=== PATIENT | male | born 1950 | race Caucasian/White ===

== ENCOUNTER 2019-11-18 12:30 | Inpatient (IN) | payer MEDICARE, SELFPAY ==
[2019-11-18] VITALS (7 sets, daily range): BP systolic 106–124; BP diastolic 77–93; PULSE 63–125; RESP 20–28; TEMP 36.4–37.1; O2SAT 93–96; BMI 38.0; BMI 41.2
--- NOTE | 2019-11-18 12:44 | ECG_ITS ---
APPROVED REPORT Exam: Resting ECG HR:125 bpm ECG Measurements Heart Rate 125 AXES QRSd 174 QRS 182 QT 368 T 5 QTc 531 <Conclusion> Probable atrial fibrillation with frequent and consecutive premature ventricular complexes and fusion complexes vs.aberrancy Right bundle branch block LAHB Abnormal ECG Electronically signed by : Eugenio Gamez, 11/18/2019 16:07:51
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
--- NOTE | 2019-11-18 12:52 | XR_ITS ---
PROCEDURE: XR CHEST 2V CLINICAL HISTORY: shortness of breath Shortness of breath COMPARISON: CT ABDOMEN PELVIS WO CON from 11/18/2019 FINDINGS: There is cardiomegaly with pulmonary venous congestion consistent with CHF. There is a small right pleural effusion. No acute bony anomaly. IMPRESSION: CHF with small right effusion Dictated by: Daniel Gorman MD 11/18/2019 14:02 Electronically signed by Daniel Gorman MD in [facility] 11/18/2019 14:02
--- NOTE | 2019-11-18 13:04 | HMH.EDGENADL ---
ED Disposition Clinical Impression: Acute on chronic respiratory failure with hypoxia, Pleural effusion CHF (congestive heart failure) Qualifiers: Heart failure type: unspecified Heart failure chronicity: acute on chronic Qualified Code(s): I50.9 - Heart failure, unspecified Disposition: Admitted As Inpatient Condition on Discharge: Fair Time of Disposition: 16:00 - Critical Care Critical Care Time: No Attestation: On 11/18/19, the high probability of a clinically significant, sudden or life threatening deterioration of the following system(s) required my full and direct attention, intervention and personal management. The time I documented below is in addition to time spent performing reported procedures but includes the following listed in this critical care notation. Medical Decision Making - Ti Inquiry Pt receiving controlled substance: No Vital Signs: 11/18/19 12:31 11/18/19 15:23 11/18/19 16:00 Temperature 98.3 F Temperature Source Oral Pulse Rate Pulse Rate [Radial] 125 H 63 Respiratory Rate 22 20 Blood Pressure Blood Pressure [Right Arm] 124/87 118/93 H Blood Pressure Mean [Right Arm] 99 101 Blood Pressure Source Blood Pressure Source [Right Arm] Automatic Cuff Automatic Cuff Blood Pressure Position Blood Pressure Position [Right Arm] Sitting Supine 02 Sat by Pulse Oximetry 93 L 96 96 Oxygen Delivery Method Room Air Room Air Room Air 11/18/19 16:06 Temperature 98.8 F Temperature Source Oral Pulse Rate 125 H Pulse Rate [Radial] Respiratory Rate 22 Blood Pressure 124/87 Blood Pressure [Right Arm] Blood Pressure Mean [Right Arm] Blood Pressure Source Automatic Cuff Blood Pressure Source [Right Arm] Blood Pressure Position Sitting Blood Pressure Position [Right Arm] 02 Sat by Pulse Oximetry Oxygen Delivery Method Room Air - Lab Data Lab Results 11/18/19 13:05: WBC 9.8, RBC 5.45, Hgb 17.4, Hct 52.5 H, MCV 96.4 H, MCH 31.9 H, MCHC 33.1, RDW 13.7, Plt Count 162, MPV 10.1, Neut % (Auto) 73.8, Lymph % (Auto) 16.8, Throckmorton % (Auto) 7.2, Eos % (Auto) 1.7, Baso % (Auto) 0.4, Neut # (Auto) 7.2, Lymph # (Auto) 1.7, Throckmorton # (Auto) 0.7, Eos # (Auto) 0.2, Baso # (Auto) 0.0 11/18/19 13:05: Sodium 132 L, Potassium 4.3, Chloride 100, Carbon Dioxide 22, Anion Gap 14.3, BUN 26 H, Creatinine 0.70, Estimated Creat Clear 129, Estimated GFR 112, Est GFR ( Amer) 136, Glucose 235 H, Calcium 9.3, Total Bilirubin 2.2 H, AST 59, ALT 90 H, Alkaline Phosphatase 93, Total Protein 7.1, Albumin 3.9, Globulin 3.2, Albumin/Globulin Ratio 1.2 11/18/19 13:05: Phosphorus 3.9, Magnesium 1.9, Troponin I 0.04 H, Lipase 416 H 11/18/19 13:05: Lactate 1.5 11/18/19 13:05: NT-Pro-B Natriuret Pep 1930 H 11/18/19 13:05: Hemoglobin A1c 9.1 H 11/18/19 13:24: Specimen Source Left radial, O2 % Ra, ABG pH 7.42, ABG pCO2 33.4 L, ABG pO2 70.1 L, ABG HCO3 21.2 L, ABG Total CO2 22.2 L, ABG O2 Saturation 94, ABG Base Excess -3.3 L, Daniel Test Acceptable Result diagrams: 11/18/19 13:05 11/18/19 13:05 Orders (Tests/Meds): ED MEDICATIONS Generic Name Dose Route Start Last Admin Trade Name Freq PRN Reason Stop Dose Admin Bisoprolol Fumarate 5 mg 11/18/19 16:00 11/18/19 16:39 Zebeta 5mg Tablet PO 12/18/19 15:59 5 mg DAILY JHONNY Administration Furosemide 40 mg 11/18/19 18:00 Lasix 40mg/4ml Vial IV 12/18/19 17:59 BIDL JHONNY Insulin Human Lispro 0 unit 11/18/19 21:00 Humalog 100 Units/Ml 3ml Vial (Ssi) SQ 12/18/19 20:59 [facility] Protocol Potassium Chloride 40 meq 11/18/19 21:00 Klor-Con 20meq Tablet PO 12/18/19 20:59 BID JHONNY Discontinued Medications Generic Name Dose Route Start Last Admin Trade Name Freq PRN Reason Stop Dose Admin Digoxin 500 mcg 11/18/19 15:41 11/18/19 16:39 Digoxin Injection 0.25mg/Ml IV 11/18/19 15:42 500 mcg ONCE ONE Administration Furosemide 40 mg 11/18/19 14:22 11/18/19 14:40 Lasix 40mg/4ml Vial IV 11/18/19 14:
[2019-11-18 13:21] LABS: Chloride 100 mmol/L (98-107); Potassium 4.3 mmoL/L (3.5-5.1); Sodium 132 mmol/L (136-145)
[2019-11-18 13:22] LABS: Basophils % 0.4 % (0.1-2.0); Eosinophils # 0.2 K/mm3 (0.0-0.4); Eosinophils % 1.7 % (0.1-12.0); Hematocrit 52.5 % (42.0-52.0); Hemoglobin 17.4 g/dL (14.1-18.0); Lymphocytes # 1.7 K/mm3 (0.7-4.5); Lymphocytes % 16.8 % (10-50); Mean Corpuscular HGB Conc 33.1 g/dL (31.8-35.4); Mean Corpuscular Hemoglobin 31.9 pg (27.0-31.2); Mean Corpuscular Volume 96.4 fl (80-94); Mean Platelet Volume 10.1 fl (7.4-10.4); Monocytes # 0.7 K/mm3 (0.1-1.0); Monocytes % 7.2 % (1.7-9.3); Neutrophils # 7.2 K/mm3 (1.8-7.8); Neutrophils % 73.8 % (37.0-80.0); Platelet Count 162 K/mm3 (142-424); Red Blood Count 5.45 M/mm3 (4.60-6.20); Red Cell Distribution Width 13.7 % (11.5-17.5); White Blood Count 9.8 K/mm3 (4.8-10.8)
[2019-11-18 13:24] LABS: Alanine Aminotransferase 90 U/L (12-78); Albumin Level 3.9 g/dl (3.5-5.0); Albumin/Globulin Ratio 1.2 (1.1-1.8); Alkaline Phosphatase 93 U/L (38-126); Anion Gap 14.3 mEq/L (5-15); Aspartate Amino Transferase 59 U/L (17-59); Bilirubin,Total 2.2 mg/dl (0.2-1.3); Blood Urea Nitrogen 26 mg/dl (9-20); Calcium 9.3 mg/dl (8.4-10.2); Carbon Dioxide 22 mmol/L (22.0-30.0); Creatinine Clearance Estimated 129 mL/min (50-200); Estimated Glomerular Filt Rate 112 ml/min (>60); GFR (African American) 136 ML/MIN (>60); Globulin 3.2 g/dL (1.3-3.2); Glucose 235 mg/dl (74-100); Total Protein,Serum 7.1 g/dl (6.3-8.2)
[2019-11-18 13:38] LABS: Lactic Acid 1.5 mmol/L (0.7-2.1); Lipase 416 U/L (23-300); Magnesium 1.9 mg/dl (1.6-2.3); Phosphorous 3.9 mg/dl (2.5-4.5)
[2019-11-18 13:50] LABS: Troponin I 0.04 ng/ml (0.00-0.034)
[2019-11-18 13:57] LABS: ABG Base Excess -3.3 mmol/L (-2.4-2.3); ABG HCO3 21.2 mmhg (22.0-26.0); ABG Oxygen Saturation 94 % (90-100); ABG PCO2 33.4 mmhg (35.0-45.0); ABG PH 7.42 mmol/L (7.35-7.45); ABG PO2 70.1 mmhg (80-100); ABG TCO2 22.2 mmhg (23-27)
[2019-11-18 13:59] LABS: Allen's Test ACCEPTABLE; Oxygen RA %; Source Left Radial
[2019-11-18 14:13] LABS: NT Pro Brain Natriuretic Pep. 1930 pg/mL (0-125)
--- NOTE | 2019-11-18 14:32 | CA_ITS ---
APPROVED REPORT EXAM: Comprehensive 2D, Doppler, and color-flow Echocardiogram Skin Fitter: Ngozi Morillo CRT Ht: 6 ft 0 in Wt: 280lbs BSA: 2.46 BP: 124/87 mmHg Indications: sob, pleural effusions, obesity M-Mode Dimensions RVDd 3.36 cm (0.9-2.6) LVDd 7.45 cm (3.5-5.7) LVDs 6.68 cm (3.5-5.7) IVSd 1.56 cm (0.6-1.1) PWd 0.86 cm (0.6-1.1) EF (Teich) 21.80% FS 10.30% EDV (Teich) 293.90 mL ESV (Teich) 229.80 mL Left Ventricle Left atrium is mildly enlarged, left ventricle is mildly dilated, severe reduced left ventricular systolic function, visually estimated ejection fraction 25 to 30%, there is abnormal septal motion, endocardial surfaces are poorly visualized. Diastolic parameters are inconclusive. Right Ventricle Right atrium and right ventricle mildly enlarged with normal contractility. Aortic Valve Aortic valve is thickened and calcified leaflet chordae display mobility, there is no aortic stenosis or aortic insufficiency. Mitral Valve Mitral valve is minimally thickened, leaflets are minimally calcified, there is no mitral stenosis, there is moderate mitral regurgitation. Tricuspid Valve Tricuspid valve is grossly normal, there is mild tricuspid regurgitation, calculated right ventricular systolic pressure is 48 mmHg. Pulmonic Valve Pulmonic valve is poorly visualized. Great Vessels Aortic root is normal size. Pericardium No significant pericardial effusion noted. Conclusion 1. Biatrial enlargement, dilated left ventricle, severely reduced left ventricular systolic function, visually estimated ejection fraction 25 to 30%, there is abnormal septal motion, endocardial surfaces are poorly visualized. Diastolic parameters are inconclusive. 2. Mildly enlarged with normal contractility. 3. Thickened and calcified aortic valve without Doppler evidence of aortic stenosis or aortic insufficiency. 4. Moderate mitral and mild tricuspid regurgitation. Calculated right ventricular systolic pressure is 48 mmHg. Inferior vena cava is not well-visualized 5. No significant pericardial effusion noted. Electronically signed by : Arsenio West, 11/18/2019 20:16:40
[2019-11-18 15:08] LABS: Hemoglobin A1C 9.1 % (4.0-6.0)
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
--- NOTE | 2019-11-18 15:27 | PC.NURSE ---
Report called to ROXI Reyna on Med Surg.
--- NOTE | 2019-11-18 15:44 | PC.NURSE ---
called cardiology office and spoke with Radhika about consult
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
[2019-11-18 19:09] LABS: Troponin I 0.05 ng/ml (0.00-0.034)
--- NOTE | 2019-11-18 19:12 | PC.NURSE ---
report given to amanuel
[2019-11-18 21:22] LABS: POC Glucose,Bedside 204 (70-110)
[2019-11-18 21:49] LABS: Troponin I 0.05 ng/ml (0.00-0.034)
--- NOTE | 2019-11-18 22:31 | PC.NURSE ---
Questionable rhythm change noted on tele, EKG obtained and d/t artifact 2 EKG's taken. 1st reads as Atrial Flutter with variable AV block with PVC or aberrantly conducted complexes, Right BBB, Septal artifact and the 2nd read Atrial Fibrillation, R BBB, Septal infarct . Admitting and current EKG's, along with rhythm strips were taken to Dr. Bruce for review per protocol. Dr. Bruce noting [employer] [pacemaker] on 2nd EKG obtained. Dr. Oneal is on-call for Dr. Pelayo and made aware of the above findings and current Labs & VS, reports to notify if HR becomes >100 or pt is symptomatic. also orders for pt to remain on cardiac monitoring.
[2019-11-19] VITALS (23 sets, daily range): BP systolic 95–145; BP diastolic 46–85; PULSE 60–120; RESP 16–30; TEMP 36.3–36.7; O2SAT 79–98; BMI 40.7
--- NOTE | 2019-11-19 | IR_ITS ---
APPROVED REPORT Patient Location: OutpatientInpatient Cardiovascular Sonographer: MARC Griffin RT (R) PROCEDURES Left heart catheterization Left ventriculogram Selective coronary angiogram INDICATION New onset systolic congestive heart failure ejection fraction less than 20% Informed consent was obtained prior to the procedure. COMPLICATIONS none Estimated Blood Loss: less than 10 mls TECHNIQUE One percent lidocaine used to anesthetize the right anterior aspect of the wrist. The right radial artery was accessed via the Seldinger technique. A 6 Portuguese sheath was placed in the right radial artery. 2.5 mg of verapamil, 800 mcg of nitroglycerin, 1mg Lidocaine and 5000 U Heparin were given through the arterial sheath. The trap catheter and 6 Portuguese EBU 3.75 guide catheter were used to perform left heart catheterization, left ventriculogram and selective coronary angiogram. At the end of the procedure the sheath was removed good hemostasis was achieved using Traclet band, patient was transferred to the postop holding area in stable condition. ANGIOGRAPHIC RESULTS The left main artery Has mild 10% atheromatous plaque The left anterior descending artery Has proximal 10% stenoses with mid vessel 30% stenosis. First diagonal artery has an ostial 70% stenosis and a mid vessel 70% stenosis. The diagonal artery is 1.5 mm in diameter The circumflex artery Is a nondominant vessel and has a long proximal 50% stenosis and a 3.25 mm vessel The right coronary artery Is a large dominant vessel and has proximal 10 to 20% stenosis a mid vessel 20 to 30% stenosis and distal eccentric 30% stenosis. The distal branches have 40% [id number] stenoses The TURK ventriculogram reveals Severely dilated severely globally hypokinetic with an ejection fraction 10% The left ventricular end-diastolic pressure Critically elevated at 50 to 60 mmHg IMPRESSION Coronary artery disease as described above Nonischemic cardiomyopathy with severely reduced ejection fraction severely dilated ventricle and severely elevated LVEDP PLAN 1. Aggressive medical management for systolic heart failure 2. Patient requires significant IV diuresis. I would recommend Lasix 80 mg twice daily until there is a significant increase in creatinine thereby demonstrating patient is in a prerenal state 3. STEPHANE inhibitor should be started on maximized 4. Beta-blockers can be added after STEPHANE inhibitors are maximized 5. High intensity statin 6. Patient should be discharged home with a LifeVest only after he has been significantly diuresed and tuned up from a systolic heart failure standpoint Electronically signed by : Roman Honeycutt, 11/19/2019 10:45:08
--- NOTE | 2019-11-19 00:07 | PC.NURSE ---
Pt's RR is elevated, pt denies any SOB at this time. Pt is sitting up in chair, legs dependent, and relaxing. Pt reports I can't sleep in that bed, can't get comfortable. Pt offered more pillows, pt refused. Pt offered and accepted a fan d/t feeling hot . Pt is afebrile, and pt reports he keeps his home ice cold . Will continue to monitor.
[2019-11-19 06:20] LABS: POC Glucose,Bedside 177 (70-110)
[2019-11-19 07:08] LABS: Basophils % 0.2 % (0.1-2.0); Eosinophils # 0.1 K/mm3 (0.0-0.4); Eosinophils % 1.4 % (0.1-12.0); Hematocrit 52.7 % (42.0-52.0); Hemoglobin 17.3 g/dL (14.1-18.0); Lymphocytes # 1.4 K/mm3 (0.7-4.5); Lymphocytes % 19.6 % (10-50); Mean Corpuscular HGB Conc 32.7 g/dL (31.8-35.4); Mean Corpuscular Hemoglobin 31.8 pg (27.0-31.2); Mean Corpuscular Volume 97.2 fl (80-94); Mean Platelet Volume 10.1 fl (7.4-10.4); Monocytes # 0.6 K/mm3 (0.1-1.0); Monocytes % 8.1 % (1.7-9.3); Neutrophils # 5.1 K/mm3 (1.8-7.8); Neutrophils % 70.8 % (37.0-80.0); Platelet Count 121 K/mm3 (142-424); Red Blood Count 5.42 M/mm3 (4.60-6.20); Red Cell Distribution Width 13.7 % (11.5-17.5); White Blood Count 7.3 K/mm3 (4.8-10.8)
[2019-11-19 07:10] LABS: Chloride 99 mmol/L (98-107)
[2019-11-19 07:11] LABS: Potassium 4.2 mmoL/L (3.5-5.1); Sodium 133 mmol/L (136-145)
[2019-11-19 07:13] LABS: Blood Urea Nitrogen 31 mg/dl (9-20); Creatinine Clearance Estimated 79 mL/min (50-200); Estimated Glomerular Filt Rate 96 ml/min (>60); GFR (African American) 117 ML/MIN (>60)
[2019-11-19 07:14] LABS: Anion Gap 15.2 mEq/L (5-15); Calcium 9.1 mg/dl (8.4-10.2); Carbon Dioxide 23 mmol/L (22.0-30.0); Glucose 192 mg/dl (74-100)
--- NOTE | 2019-11-19 08:27 | HMH.PNCARD ---
Subjective Date: 11/19/19 Time: 08:28 Principal diagnosis: CHF, CM, Elevated troponins Interval history: 69-year-old white male in bedside chair in no acute distress. Breathing is improved but not back to baseline. Patient continues to have lower extremity edema and some difficulty lying flat for long periods of time. He denies any chest pain, pressure or tightness. Heart rate significantly improved with addition of bisoprolol and digoxin yesterday. Echocardiogram shows ejection fraction in the 25-30% range with moderate regurgitation of the mitral valve and right ventricular systolic pressure 48 mmHg. Exam Vital signs and Labs for Last 24 Hours: Temp Pulse Resp BP Pulse Ox 97.9 F 94 H 18 114/85 90 L 11/19/19 08:00 11/19/19 08:00 11/19/19 08:00 11/19/19 08:00 11/19/19 08:00 Laboratory Results - last 24 hr 11/18/19 13:05: WBC 9.8, RBC 5.45, Hgb 17.4, Hct 52.5 H, MCV 96.4 H, MCH 31.9 H, MCHC 33.1, RDW 13.7, Plt Count 162, MPV 10.1, Neut % (Auto) 73.8, Lymph % (Auto) 16.8, [place] % (Auto) 7.2, Eos % (Auto) 1.7, Baso % (Auto) 0.4, Neut # (Auto) 7.2, Lymph # (Auto) 1.7, [place] # (Auto) 0.7, Eos # (Auto) 0.2, Baso # (Auto) 0.0 11/18/19 13:05: Sodium 132 L, Potassium 4.3, Chloride 100, Carbon Dioxide 22, Anion Gap 14.3, BUN 26 H, Creatinine 0.70, Estimated Creat Clear 129, Estimated GFR 112, Est GFR ( Amer) 136, Glucose 235 H, Calcium 9.3, Total Bilirubin 2.2 H, AST 59, ALT 90 H, Alkaline Phosphatase 93, Total Protein 7.1, Albumin 3.9, Globulin 3.2, Albumin/Globulin Ratio 1.2 11/18/19 13:05: Phosphorus 3.9, Magnesium 1.9, Troponin I 0.04 H, Lipase 416 H 11/18/19 13:05: Lactate 1.5 11/18/19 13:05: NT-Pro-B Natriuret Pep 1930 H 11/18/19 13:05: Hemoglobin A1c 9.1 H 11/18/19 13:24: Specimen Source Left radial, O2 % Ra, ABG pH 7.42, ABG pCO2 33.4 L, ABG pO2 70.1 L, ABG HCO3 21.2 L, ABG Total CO2 22.2 L, ABG O2 Saturation 94, ABG Base Excess -3.3 L, Daniel Test Acceptable 11/18/19 18:30: Troponin I 0.05 H 11/18/19 20:57: POC Glucose 204 H 11/18/19 21:21: Troponin I 0.05 H 11/19/19 06:02: POC Glucose 177 H 11/19/19 06:20: WBC 7.3 D, RBC 5.42, Hgb 17.3, Hct 52.7 H, MCV 97.2 H, MCH 31.8 H, MCHC 32.7, RDW 13.7, Plt Count 121 L D, MPV 10.1, Neut % (Auto) 70.8, Lymph % (Auto) 19.6, [place] % (Auto) 8.1, Eos % (Auto) 1.4, Baso % (Auto) 0.2, Neut # (Auto) 5.1, Lymph # (Auto) 1.4, [place] # (Auto) 0.6, Eos # (Auto) 0.1, Baso # (Auto) 0.0 11/19/19 06:20: Sodium 133 L, Potassium 4.2, Chloride 99, Carbon Dioxide 23, Anion Gap 15.2 H, BUN 31 H, Creatinine 0.80, Estimated Creat Clear 79, Estimated GFR 96, Est GFR ( Amer) 117, Glucose 192 H, Calcium 9.1 I & O for Last 24 hours: Intake & Output 11/16/19 11/17/19 11/18/19 11/19/19 11:59 11:59 11:59 11:59 Intake Total 610 / 610 Output Total 1150 / 1150 Balance -540 / -540 Weight 307 lb 6.4 oz - *Routine HEENT Exam Head: Present: normocephalic Eye: Present: EOMI, PERRL ENT: Present: mucous membranes moist - *Routine Respiratory Exam Present: rales. Absent: accessory muscle use, rhonchi, wheezes - *Routine Cardiovascular Exam Present: RRR, gallop, S3. Absent: murmur, rubs - *Routine Abdominal Exam Present: soft. Absent: tenderness, distended, guarding - *Routine Extremities Exam Present: edema. Absent: calf tenderness - *Routine Neurological Exam Present: alert, oriented X3, moving all extremities Progress Note: A&P (1) Acute systolic congestive heart failure, NYHA class 4 Status: Acute Current Visit: Yes (2) Cardiomyopathy Status: Acute Current Visit: Yes (3) Diabetes mellitus type 2 in obese Status: Acute Current Visit: Yes (4) Obesity (BMI 30-39.9) Status: Acute Current Visit: Yes (5) Poor dentition Status: Acute Current Visit: Yes (6) Elevated troponin Status: Acute Current Visit: Yes Assessment and Plan for All Diagnoses:: 1. Newly diagnosed congestive heart failure and severe cardiomyopathy. Patient with mild
--- NOTE | 2019-11-19 08:35 | ECG_ITS ---
APPROVED REPORT Exam: Resting ECG HR:96 bpm ECG Measurements Heart Rate 96 AXES QRSd 186 QRS 189 QT 424 T 6 QTc 535 <Conclusion> Atrial fibrillation with premature ventricular or aberrantly conducted complexes Right bundle branch block Septal infarct, age undetermined Abnormal ECG Electronically signed by : Boris Pelayo, 11/20/2019 06:32:40
--- NOTE | 2019-11-19 08:36 | HMH.ACPN2 ---
Internal Medicine - PN: Subj *Date: 11/19/19 *Time: 08:36 Interval history: Mr. Angel is a 69-year-old gentleman who did well overnight. Not requiring oxygen at this time. Denies any chest pain and states he feels somewhat better however still quite fatigued. Blood pressure softer this morning though tolerating medications that were initiated yesterday. Cardiology has seen him this morning, current recommendation is heart cath. Otherwise denies nausea, vomiting, diarrhea, shortness of breath. Did not have impressive diuresis however reports somewhat feeling better even without. Exam Vital signs and Labs for Last 24 Hours: Temp Pulse Resp BP Pulse Ox 97.9 F 94 H 18 114/85 90 L 11/19/19 08:00 11/19/19 08:00 11/19/19 08:00 11/19/19 08:00 11/19/19 08:00 Laboratory Results - last 24 hr 11/18/19 13:05: WBC 9.8, RBC 5.45, Hgb 17.4, Hct 52.5 H, MCV 96.4 H, MCH 31.9 H, MCHC 33.1, RDW 13.7, Plt Count 162, MPV 10.1, Neut % (Auto) 73.8, Lymph % (Auto) 16.8, [place] % (Auto) 7.2, Eos % (Auto) 1.7, Baso % (Auto) 0.4, Neut # (Auto) 7.2, Lymph # (Auto) 1.7, [place] # (Auto) 0.7, Eos # (Auto) 0.2, Baso # (Auto) 0.0 11/18/19 13:05: Sodium 132 L, Potassium 4.3, Chloride 100, Carbon Dioxide 22, Anion Gap 14.3, BUN 26 H, Creatinine 0.70, Estimated Creat Clear 129, Estimated GFR 112, Est GFR ( Amer) 136, Glucose 235 H, Calcium 9.3, Total Bilirubin 2.2 H, AST 59, ALT 90 H, Alkaline Phosphatase 93, Total Protein 7.1, Albumin 3.9, Globulin 3.2, Albumin/Globulin Ratio 1.2 11/18/19 13:05: Phosphorus 3.9, Magnesium 1.9, Troponin I 0.04 H, Lipase 416 H 11/18/19 13:05: Lactate 1.5 11/18/19 13:05: NT-Pro-B Natriuret Pep 1930 H 11/18/19 13:05: Hemoglobin A1c 9.1 H 11/18/19 13:24: Specimen Source Left radial, O2 % Ra, ABG pH 7.42, ABG pCO2 33.4 L, ABG pO2 70.1 L, ABG HCO3 21.2 L, ABG Total CO2 22.2 L, ABG O2 Saturation 94, ABG Base Excess -3.3 L, Daniel Test Acceptable 11/18/19 18:30: Troponin I 0.05 H 11/18/19 20:57: POC Glucose 204 H 11/18/19 21:21: Troponin I 0.05 H 11/19/19 06:02: POC Glucose 177 H 11/19/19 06:20: WBC 7.3 D, RBC 5.42, Hgb 17.3, Hct 52.7 H, MCV 97.2 H, MCH 31.8 H, MCHC 32.7, RDW 13.7, Plt Count 121 L D, MPV 10.1, Neut % (Auto) 70.8, Lymph % (Auto) 19.6, [place] % (Auto) 8.1, Eos % (Auto) 1.4, Baso % (Auto) 0.2, Neut # (Auto) 5.1, Lymph # (Auto) 1.4, [place] # (Auto) 0.6, Eos # (Auto) 0.1, Baso # (Auto) 0.0 11/19/19 06:20: Sodium 133 L, Potassium 4.2, Chloride 99, Carbon Dioxide 23, Anion Gap 15.2 H, BUN 31 H, Creatinine 0.80, Estimated Creat Clear 79, Estimated GFR 96, Est GFR ( Amer) 117, Glucose 192 H, Calcium 9.1 I & O for Last 24 hours: Intake & Output 11/16/19 11/17/19 11/18/19 11/19/19 23:59 23:59 23:59 23:59 Intake Total 250 / 250 360 / 360 Output Total 625 / 625 525 / 525 Balance -375 / -375 -165 / -165 Weight 141.776 kg 139.434 kg Narrative: - *Routine HEENT Exam Head: Present: normocephalic Eye: Present: EOMI, PERRL ENT: Present: mucous membranes moist - *Routine Neck Exam Present: supple. Absent: lymphadenopathy - *Routine Respiratory Exam Present: decreased breath sounds, rales (Both bases) - *Routine Cardiovascular Exam Present: RRR, S3 present - *Routine Abdominal Exam Present: soft, normoactive bowel sounds. Absent: tenderness - *Routine Extremities Exam Absent: cyanosis, clubbing, edema - *Routine Skin Exam Present: warm. Absent: rash - *Routine Neurological Exam Present: alert, oriented X3 - Routine Psychiatric Exam Present: normal affect Assessment and Plan (1) Acute systolic congestive heart failure, NYHA class 4 Current visit: Yes Status: Acute Category: Medical Code(s): I50.21 - Acute systolic (congestive) heart failure (2) Cardiomyopathy Current visit: Yes Status: Acute Category: Medical Code(s): I42.9 - Cardiomyopathy, unspecified (3) Diabetes mellitus type 2 in obese Current visit: Yes Status: Acute Category: Medical Code(s): E11.69
[2019-11-19 11:19] LABS: Microscopic,Cath URINE MICROSCOPIC (MICROSCOPIC)
[2019-11-19 12:32] LABS: Appearance,Urine/Cath CLEAR (Clear); Blood, Urine/Cath Negative (Negative); Color,Urine/Cath YELLOW (Yellow); Glucose,Urine/Cath (UA) Negative (Negative); Ketones,Urine/Cath Negative (Negative); Leukocyte Esterase,Cath Negative (Negative); Nitrate,Cath Negative (Negative); PH,Urine/Cath 5.5 (5.0-8.5); Protein,Urine/Cath 1+ (Negative); Specific Gravity, Urine/Cath >= 1.030 (1.005-1.030); Urobilinogen,Cath 0.2 EU/dl (0.2)
[2019-11-19 12:34] LABS: POC Glucose,Bedside 178 (70-110)
[2019-11-19 12:44] LABS: Bilirubin,Cath Negative (Negative)
[2019-11-19 13:58] LABS: WBC,Urine/Cath Occasional #/hpf (0-3)
[2019-11-19 13:59] LABS: Squamous Epithelial Ur./Cath Occasional #/hpf (0-5)
--- NOTE | 2019-11-19 15:50 | PC.NURSE ---
PT IS SITTING UP IN THE CHAIR. PT STATED HE WAS VERY UNCOMFORTABLE IN THE BED. ALERT AND ORIENTED X4. MILRINONE DRIP INFUSING AT 0.125 MCG/MIN. VSS. SINUS ARRHYTHMIA ON THE MONITOR. O2 SATURATION 98% ON 3 L NC. DRESSING TO THE RT RADIAL C/D/I. WILL CONTINUE TO MONITOR.
[2019-11-19 18:40] LABS: POC Glucose,Bedside 154 (70-110)
--- NOTE | 2019-11-19 20:21 | PC.NURSE ---
He is A&OX4. He is sitting up in the chair. Voices frustration about being hooked to telemetry, oxygen tubing, SPO2 monitor, and BP cuff. He refused a bedtime snack. Denies SOA. Denies chest pain. States he has pain in his right calf but reports it as chronic. He has 1+ non-pitting edema in BLE. Scattered scabs and discoloration to BLE. Abdomen is distended. Reports last BM was today (11/19/19). Lung sounds CTA. Normal bowel sounds. Voiding per f/c. Urine is pale yellow, cloudy. He is s/p heart cath with right radial site. Radial site has DSG in place that is C/D/I. Capillary refill <3. Positive radial and pedal pulses. He was educated on not putting pressure on his right arm and voices understanding.
[2019-11-19 20:59] LABS: POC Glucose,Bedside 228 (70-110)
[2019-11-20] VITALS (13 sets, daily range): BP systolic 88–135; BP diastolic 53–82; PULSE 90–120; RESP 16–20; TEMP 36.5–36.6; O2SAT 92–95; BMI 40.4; BMI 40.3
[2019-11-20 05:50] LABS: POC Glucose,Bedside 129 (70-110)
--- NOTE | 2019-11-20 06:00 | XR_ITS ---
PROCEDURE: XR CHEST PORTABLE CLINICAL HISTORY: heart failure, follow-up CHF COMPARISON: XR CHEST 2V from 11/18/2019 FINDINGS: There are low lung volumes. There is cardiomegaly with pulmonary venous congestion consistent with congestive heart failure. These findings appear worse however, the inspiration is less than on the previous exam There is some increased density in the right upper and right lower lobe which could be reflection of the technique and CHF. Cannot exclude developing edema or pneumonia. Consider upright PA and lateral chest for further evaluation. No acute bony abnormalities. IMPRESSION: Poor inspiration with continued CHF and possible developing edema or pneumonia in the right upper and right lower lobe versus vascular crowding. Consider upright PA and lateral chest for further evaluation Dictated by: Daniel Gorman MD 11/20/2019 06:54 Electronically signed by Daniel Gorman MD in [place] 11/20/2019 06:54
[2019-11-20 06:22] LABS: Basophils % 0.3 % (0.1-2.0); Eosinophils # 0.1 K/mm3 (0.0-0.4); Hematocrit 50.6 % (42.0-52.0); Hemoglobin 16.7 g/dL (14.1-18.0); Lymphocytes # 1.7 K/mm3 (0.7-4.5); Lymphocytes % 18.8 % (10-50); Mean Corpuscular Hemoglobin 32.5 pg (27.0-31.2); Mean Corpuscular Volume 98.4 fl (80-94); Mean Platelet Volume 9.8 fl (7.4-10.4); Monocytes # 0.7 K/mm3 (0.1-1.0); Monocytes % 7.2 % (1.7-9.3); Neutrophils # 6.6 K/mm3 (1.8-7.8); Neutrophils % 72.7 % (37.0-80.0); Platelet Count 141 K/mm3 (142-424); Red Blood Count 5.14 M/mm3 (4.60-6.20); Red Cell Distribution Width 13.5 % (11.5-17.5); White Blood Count 9.1 K/mm3 (4.8-10.8)
[2019-11-20 06:34] LABS: Chloride 96 mmol/L (98-107)
[2019-11-20 06:35] LABS: Potassium 4.1 mmoL/L (3.5-5.1); Sodium 135 mmol/L (136-145)
[2019-11-20 06:37] LABS: Alanine Aminotransferase 79 U/L (12-78); Aspartate Amino Transferase 58 U/L (17-59); Blood Urea Nitrogen 34 mg/dl (9-20); Creatinine Clearance Estimated 79 mL/min (50-200); Estimated Glomerular Filt Rate 75 ml/min (>60); GFR (African American) 90 ML/MIN (>60)
[2019-11-20 06:38] LABS: Albumin Level 3.5 g/dl (3.5-5.0); Albumin/Globulin Ratio 1.2 (1.1-1.8); Alkaline Phosphatase 77 U/L (38-126); Anion Gap 11.1 mEq/L (5-15); Bilirubin,Total 1.5 mg/dl (0.2-1.3); Calcium 8.8 mg/dl (8.4-10.2); Carbon Dioxide 32 mmol/L (22.0-30.0); Globulin 2.9 g/dL (1.3-3.2); Glucose 139 mg/dl (74-100); Magnesium 1.9 mg/dl (1.6-2.3); Total Protein,Serum 6.4 g/dl (6.3-8.2)
--- NOTE | 2019-11-20 08:13 | HMH.ACPN2 ---
Internal Medicine - PN: Subj *Date: 11/20/19 *Time: 08:13 Interval history: Overall patient feels much better, is 12 pounds down from admission. Slept well last night with oxygen upright in a chair. Exam Vital signs and Labs for Last 24 Hours: Temp Pulse Resp BP Pulse Ox 97.7 F 112 H 17 125/68 94 L 11/19/19 20:00 11/20/19 06:00 11/19/19 20:00 11/20/19 06:00 11/20/19 06:00 Laboratory Results - last 24 hr 11/19/19 11:00: Urine Color Yellow, Urine Appearance Clear, Urine pH 5.5, Ur Specific [place] >= 1.030, Urine Protein 1+, Urine Glucose (UA) Negative, Urine Ketones Negative, Urine Blood Negative, Urine Nitrate Negative, Urine Bilirubin Negative, Urine Urobilinogen 0.2, Ur Leukocyte Esterase Negative, Urine RBC 3-5, Urine WBC Occasional, Ur Squamous Epith Cells Occasional, Urine Bacteria None 11/19/19 12:27: POC Glucose 178 H 11/19/19 17:23: POC Glucose 154 H 11/19/19 19:51: POC Glucose 228 H 11/20/19 05:36: WBC 9.1, RBC 5.14, Hgb 16.7, Hct 50.6, MCV 98.4 H, MCH 32.5 H, MCHC 33.0, RDW 13.5, Plt Count 141 L, MPV 9.8, Neut % (Auto) 72.7, Lymph % (Auto) 18.8, [place] % (Auto) 7.2, Eos % (Auto) 1.0, Baso % (Auto) 0.3, Neut # (Auto) 6.6, Lymph # (Auto) 1.7, [place] # (Auto) 0.7, Eos # (Auto) 0.1, Baso # (Auto) 0.0 11/20/19 05:36: Sodium 135 L, Potassium 4.1, Chloride 96 L, Carbon Dioxide 32 H D, Anion Gap 11.1, BUN 34 H, Creatinine 1.00 D, Estimated Creat Clear 79, Estimated GFR 75, Est GFR ( Amer) 90 D, Glucose 139 H D, Calcium 8.8, Magnesium 1.9, Total Bilirubin 1.5 H, AST 58, ALT 79 H, Alkaline Phosphatase 77, Total Protein 6.4, Albumin 3.5, Globulin 2.9, Albumin/Globulin Ratio 1.2 11/20/19 05:36: POC Glucose 129 H I & O for Last 24 hours: Intake & Output 11/17/19 11/18/19 11/19/19 11/20/19 11:59 11:59 11:59 11:59 Intake Total 610 / 610 591 / 591 Output Total 1150 / 1150 4700 / 4700 Balance -540 / -540 -4109 / -4109 Weight 307 lb 6.4 oz 305 lb 1 oz Narrative: Pleasant, alert, impatient about not being able to be discharged today. Lungs have good air movement, much better than admission, heart rate regular with occasional ectopic beats. Gallop rhythm noted on admission is now resolved. Abdomen soft and nontender. Edema is also much improved. Neurologic exam intact, oropharynx clear, no JVD. Assessment and Plan (1) Acute systolic congestive heart failure, NYHA class 4 Current visit: Yes Status: Acute Category: Medical Code(s): I50.21 - Acute systolic (congestive) heart failure (2) Cardiomyopathy Current visit: Yes Status: Acute Category: Medical Code(s): I42.9 - Cardiomyopathy, unspecified (3) Diabetes mellitus type 2 in obese Current visit: Yes Status: Acute Category: Medical Code(s): E11.69 - Type 2 diabetes mellitus with other specified complication; E66.9 - Obesity, unspecified (4) Obesity (BMI 30-39.9) Current visit: Yes Status: Acute Category: Medical Code(s): E66.9 - Obesity, unspecified (5) Poor dentition Current visit: Yes Status: Acute Category: Medical Code(s): K08.9 - Disorder of teeth and supporting structures, unspecified (6) Elevated troponin Current visit: Yes Status: Acute Category: Medical Code(s): R79.89 - Other specified abnormal findings of blood chemistry - Assessment and plan all Dx Assessment and Plan for all problems:: I had a long discussion with patient about the seriousness of class IV heart failure and cardiomyopathy. Instructed him that it would take us a couple of days to adjust his medications. Discussed dietary modifications with him. Discussed high mortality rate of stage IV CHF. Discussed medication changes with patient. We will stop milrinone today, start Entresto. He has not received a doses of lisinopril today so we will start Entresto this morning. Also start Farxiga -10 mg daily given his diabetes and heart failure issues. Continue IV diuretics. Labs tomorrow.
--- NOTE | 2019-11-20 09:38 | HMH.PNCARD ---
Subjective Date: 11/20/19 Time: 09:15 Principal diagnosis: CHF, CM, Elevated troponins Interval history: This is a 69-year-old gentleman who was admitted to the hospital and found to be in acute systolic congestive heart failure. The patient did undergo left cardiac catheterization which showed patent coronary artery disease which did not require percutaneous intervention. His ejection fraction was around 10% on the LV gram. His LVEDP was critically elevated at 50 to 60 mmHg. His echocardiogram showed an ejection fraction of 25 to 30%. The patient was diuresed on milrinone, Lasix and chlorothiazide yesterday. He had a negative fluid balance of a little over 3 L overnight. He is approximately -1 L today already. The patient denies any chest pain or shortness of breath today. He states that he feels much better. He denies any lower extremity edema. He denies any fever, chills, nausea, vomiting, diarrhea, PND, orthopnea or cough. He is sitting up in a chair with no oxygen on and he states that he is ready to go home. I had a long discussion with the patient about his systolic heart failure, NYHA class IV. I have discussed the mortality rate of his congestive heart failure. I have had a long discussion with the patient about fluid restrictions and daily weights as well. The patient has verbalized understanding. Exam Vital signs and Labs for Last 24 Hours: Temp Pulse Resp BP Pulse Ox 97.9 F 112 H 17 125/68 94 L 11/20/19 08:00 11/20/19 06:00 11/19/19 20:00 11/20/19 06:00 11/20/19 06:00 Laboratory Results - last 24 hr 11/19/19 11:00: Urine Color Yellow, Urine Appearance Clear, Urine pH 5.5, Ur Specific [place] >= 1.030, Urine Protein 1+, Urine Glucose (UA) Negative, Urine Ketones Negative, Urine Blood Negative, Urine Nitrate Negative, Urine Bilirubin Negative, Urine Urobilinogen 0.2, Ur Leukocyte Esterase Negative, Urine RBC 3-5, Urine WBC Occasional, Ur Squamous Epith Cells Occasional, Urine Bacteria None 11/19/19 12:27: POC Glucose 178 H 11/19/19 17:23: POC Glucose 154 H 11/19/19 19:51: POC Glucose 228 H 11/20/19 05:36: WBC 9.1, RBC 5.14, Hgb 16.7, Hct 50.6, MCV 98.4 H, MCH 32.5 H, MCHC 33.0, RDW 13.5, Plt Count 141 L, MPV 9.8, Neut % (Auto) 72.7, Lymph % (Auto) 18.8, [place] % (Auto) 7.2, Eos % (Auto) 1.0, Baso % (Auto) 0.3, Neut # (Auto) 6.6, Lymph # (Auto) 1.7, [place] # (Auto) 0.7, Eos # (Auto) 0.1, Baso # (Auto) 0.0 11/20/19 05:36: Sodium 135 L, Potassium 4.1, Chloride 96 L, Carbon Dioxide 32 H D, Anion Gap 11.1, BUN 34 H, Creatinine 1.00 D, Estimated Creat Clear 79, Estimated GFR 75, Est GFR ( Amer) 90 D, Glucose 139 H D, Calcium 8.8, Magnesium 1.9, Total Bilirubin 1.5 H, AST 58, ALT 79 H, Alkaline Phosphatase 77, Total Protein 6.4, Albumin 3.5, Globulin 2.9, Albumin/Globulin Ratio 1.2 11/20/19 05:36: POC Glucose 129 H I & O for Last 24 hours: Intake & Output 11/17/19 11/18/19 11/19/19 11/20/19 23:59 23:59 23:59 23:59 Intake Total 250 / 250 878 / 878 433 / 433 Output Total 625 / 625 3925 / 3925 1300 / 1300 Balance -375 / -375 -3047 / -3047 -867 / -867 Weight 312 lb 9 oz 307 lb 6.4 oz 305 lb 1 oz Narrative: Telemetry strip shows sinus rhythm with a rate of 125. [facility] shows: The left main artery Has mild 10% atheromatous plaque The left anterior descending artery Has proximal 10% stenoses with mid vessel 30% stenosis. First diagonal artery has an ostial 70% stenosis and a mid vessel 70% stenosis. The diagonal artery is 1.5 mm in diameter The circumflex artery Is a nondominant vessel and has a long proximal 50% stenosis and a 3.25 mm vessel The right coronary artery Is a large dominant vessel and has proximal 10 to 20% stenosis a mid vessel 20 to 30% stenosis and distal eccentric 30% stenosis. The distal branches have 40% [id number] stenoses The TURK ventriculogram reveals Severely dilated severely globally hypokinetic with an ejection fraction 10% The left ventricular end-diastolic pre
[2019-11-20 12:28] LABS: POC Glucose,Bedside 159 (70-110)
--- NOTE | 2019-11-20 13:44 | ECG_ITS ---
APPROVED REPORT Exam: Resting ECG HR:102 bpm ECG Measurements Heart Rate 102 AXES PA 142 P QRSd 190 QRS 177 QT 406 T 2 QTc 529 <Conclusion> Atrial fibrillation Right bundle branch block LAHB Abnormal ECG Electronically signed by : Eugenio Gamez, 11/20/2019 16:21:30
--- NOTE | 2019-11-20 15:21 | PC.NURSE ---
No acute changes noted this shift, pt has been up to chair for most of day, has diuresed well, denies any pain or SOA, when patient naps his o2 saturation drops to mid 80's, placed on 2LNC while sleeping, foster catheter patent and draining at bedside, urine is dark tea colored, pt is alert and oriented x4, perrla, 1+ edema noted to BLE which has improved since arrival, pt has been ST with BBB on telemetry, frequent pvcs noted, no s/s of distress noted, vss, will continue to montior.
[2019-11-20 17:02] LABS: POC Glucose,Bedside 157 (70-110)
--- NOTE | 2019-11-20 19:15 | PC.NURSE ---
report given to rosy
[2019-11-20 20:03] LABS: POC Glucose,Bedside 199 (70-110)
[2019-11-21] VITALS (17 sets, daily range): BP systolic 81–157; BP diastolic 31–62; PULSE 100–120; RESP 17–22; TEMP 36.5–36.6; O2SAT 88–98; BMI 39.5
--- NOTE | 2019-11-21 03:13 | PC.NURSE ---
He has been resting t/o the night. Denies pain. Denies SOA. He is wearing the life vest. He is wearing O2. His O2 sats decrease to 84-86% on RA then rebound to 89-90%. DSG removed on right wrist and area is JASSI. No bruising or swelling at the site. Capillary refill <3. Positive radial and pedal pulses. 1+ pitting edema on BLE. He is voiding per f/c. Urine is a dark kyler color.
[2019-11-21 05:57] LABS: POC Glucose,Bedside 140 (70-110)
[2019-11-21 06:01] LABS: Basophils % 0.4 % (0.1-2.0); Eosinophils # 0.1 K/mm3 (0.0-0.4); Eosinophils % 1.3 % (0.1-12.0); Hematocrit 52.3 % (42.0-52.0); Hemoglobin 17.6 g/dL (14.1-18.0); Lymphocytes # 1.6 K/mm3 (0.7-4.5); Lymphocytes % 17.9 % (10-50); Mean Corpuscular HGB Conc 33.7 g/dL (31.8-35.4); Mean Corpuscular Volume 95.1 fl (80-94); Mean Platelet Volume 10.2 fl (7.4-10.4); Monocytes # 0.8 K/mm3 (0.1-1.0); Monocytes % 9.6 % (1.7-9.3); Neutrophils # 6.2 K/mm3 (1.8-7.8); Neutrophils % 70.8 % (37.0-80.0); Platelet Count 154 K/mm3 (142-424); Red Cell Distribution Width 13.6 % (11.5-17.5); White Blood Count 8.8 K/mm3 (4.8-10.8)
[2019-11-21 06:05] LABS: Chloride 96 mmol/L (98-107); Sodium 134 mmol/L (136-145)
[2019-11-21 06:07] LABS: Blood Urea Nitrogen 30 mg/dl (9-20); Creatinine Clearance Estimated 79 mL/min (50-200); Estimated Glomerular Filt Rate 96 ml/min (>60); GFR (African American) 117 ML/MIN (>60)
[2019-11-21 06:08] LABS: Alanine Aminotransferase 67 U/L (12-78); Albumin Level 3.7 g/dl (3.5-5.0); Albumin/Globulin Ratio 1.2 (1.1-1.8); Alkaline Phosphatase 70 U/L (38-126); Anion Gap 12.1 mEq/L (5-15); Bilirubin,Total 2.2 mg/dl (0.2-1.3); Calcium 8.8 mg/dl (8.4-10.2); Carbon Dioxide 30 mmol/L (22.0-30.0); Globulin 3.2 g/dL (1.3-3.2); Glucose 151 mg/dl (74-100); Total Protein,Serum 6.9 g/dl (6.3-8.2)
[2019-11-21 06:38] LABS: Aspartate Amino Transferase 51 U/L (17-59); Potassium 4.1 mmoL/L (3.5-5.1)
--- NOTE | 2019-11-21 08:50 | HMH.ACPN2 ---
Internal Medicine - PN: Subj *Date: 11/21/19 *Time: 08:50 Interval history: Mr. Angel has done well overnight. Continues to have aggressive diuresis. Over 4-1/2 L of output yesterday. Weight down a total of ~16lbs (>6.5kg) since admission. Denies any chest pain though does complain of feeling arrhythmia and fluttering in his chest. Got up and walked early this morning without any difficulty. Denies dizziness, syncope, nausea, vomiting. Feels his ankles are less swollen. Overall feeling better. Still requiring oxygen this morning. Eating regular diet. Exam Vital signs and Labs for Last 24 Hours: Temp Pulse Resp BP Pulse Ox 97.8 F 118 H 17 90/49 L 93 L 11/21/19 04:00 11/21/19 06:00 11/21/19 04:00 11/21/19 06:00 11/21/19 06:00 Laboratory Results - last 24 hr 11/20/19 12:04: POC Glucose 159 H 11/20/19 16:43: POC Glucose 157 H 11/20/19 19:42: POC Glucose 199 H 11/21/19 05:03: POC Glucose 140 H 11/21/19 05:34: WBC 8.8, RBC 5.50, Hgb 17.6, Hct 52.3 H, MCV 95.1 H, MCH 32.0 H, MCHC 33.7, RDW 13.6, Plt Count 154, MPV 10.2, Neut % (Auto) 70.8, Lymph % (Auto) 17.9, [place] % (Auto) 9.6 H, Eos % (Auto) 1.3, Baso % (Auto) 0.4, Neut # (Auto) 6.2, Lymph # (Auto) 1.6, [place] # (Auto) 0.8, Eos # (Auto) 0.1, Baso # (Auto) 0.0 11/21/19 05:34: Sodium 134 L, Potassium 4.1, Chloride 96 L, Carbon Dioxide 30, Anion Gap 12.1, BUN 30 H, Creatinine 0.80, Estimated Creat Clear 79, Estimated GFR 96, Est GFR ( Amer) 117 D, Glucose 151 H, Calcium 8.8, Total Bilirubin 2.2 H, AST 51, ALT 67, Alkaline Phosphatase 70, Total Protein 6.9, Albumin 3.7, Globulin 3.2, Albumin/Globulin Ratio 1.2 I & O for Last 24 hours: Intake & Output 11/18/19 11/19/19 11/20/19 11/21/19 23:59 23:59 23:59 23:59 Intake Total 250 / 250 878 / 878 1293 / 1293 Output Total 625 / 625 3925 / 3925 5350 / 5350 700 / 700 Balance -375 / -375 -3047 / -3047 -4057 / -4057 -700 / -700 Weight 141.776 kg 139.434 kg 138 kg 135.284 kg Microbiology Reports for the Last 24 Hours: Microbiology 11/18/19 17:10 Blood Blood Culture - Preliminary NO GROWTH AFTER 48 HOURS 11/18/19 13:05 Blood Blood Culture - Preliminary NO GROWTH AFTER 48 HOURS Narrative: - *Routine HEENT Exam Head: Present: normocephalic Eye: Present: EOMI, PERRL ENT: Present: mucous membranes moist - *Routine Neck Exam Present: supple. Absent: lymphadenopathy - *Routine Respiratory Exam Present: decreased breath sounds, rales (Both bases) - *Routine Cardiovascular Exam Present:, Tachycardia, irregular rhythm, S3 present - *Routine Abdominal Exam Present: soft, normoactive bowel sounds. Absent: tenderness - *Routine Extremities Exam Absent: cyanosis, clubbing, edema - *Routine Skin Exam Present: warm. Absent: rash - *Routine Neurological Exam Present: alert, oriented X3 - Routine Psychiatric Exam Present: normal affect Assessment and Plan (1) Acute systolic congestive heart failure, NYHA class 4 Current visit: Yes Status: Acute Category: Medical Code(s): I50.21 - Acute systolic (congestive) heart failure (2) Cardiomyopathy Current visit: Yes Status: Acute Category: Medical Code(s): I42.9 - Cardiomyopathy, unspecified (3) Diabetes mellitus type 2 in obese Current visit: Yes Status: Acute Category: Medical Code(s): E11.69 - Type 2 diabetes mellitus with other specified complication; E66.9 - Obesity, unspecified (4) Obesity (BMI 30-39.9) Current visit: Yes Status: Chronic Category: Medical Code(s): E66.9 - Obesity, unspecified (5) Elevated troponin Current visit: Yes Status: Acute Category: Medical Code(s): R79.89 - Other specified abnormal findings of blood chemistry (6) Coronary artery disease Current visit: Yes Status: Chronic Category: Medical Code(s): I25.10 - Atherosclerotic heart disease of [place] coronary artery without angina pectoris (7) Tach
--- NOTE | 2019-11-21 08:58 | HMH.PNCARD ---
Subjective Date: 11/21/19 Time: 08:59 Principal diagnosis: CHF, CM, Elevated troponins Interval history: 69-year-old white male sitting in bedside chair in no acute distress. Patient has diuresed over 12 pounds in the last couple of days and is now below 300 pounds. He is wearing his LifeVest. Patient is off the milrinone drip. Telemetry shows continued sinus tachycardia from 110 to 120 bpm. Exam Vital signs and Labs for Last 24 Hours: Temp Pulse Resp BP Pulse Ox 97.8 F 118 H 17 90/49 L 93 L 11/21/19 04:00 11/21/19 06:00 11/21/19 04:00 11/21/19 06:00 11/21/19 06:00 Laboratory Results - last 24 hr 11/20/19 12:04: POC Glucose 159 H 11/20/19 16:43: POC Glucose 157 H 11/20/19 19:42: POC Glucose 199 H 11/21/19 05:03: POC Glucose 140 H 11/21/19 05:34: WBC 8.8, RBC 5.50, Hgb 17.6, Hct 52.3 H, MCV 95.1 H, MCH 32.0 H, MCHC 33.7, RDW 13.6, Plt Count 154, MPV 10.2, Neut % (Auto) 70.8, Lymph % (Auto) 17.9, Frontier % (Auto) 9.6 H, Eos % (Auto) 1.3, Baso % (Auto) 0.4, Neut # (Auto) 6.2, Lymph # (Auto) 1.6, Frontier # (Auto) 0.8, Eos # (Auto) 0.1, Baso # (Auto) 0.0 11/21/19 05:34: Sodium 134 L, Potassium 4.1, Chloride 96 L, Carbon Dioxide 30, Anion Gap 12.1, BUN 30 H, Creatinine 0.80, Estimated Creat Clear 79, Estimated GFR 96, Est GFR ( Amer) 117 D, Glucose 151 H, Calcium 8.8, Total Bilirubin 2.2 H, AST 51, ALT 67, Alkaline Phosphatase 70, Total Protein 6.9, Albumin 3.7, Globulin 3.2, Albumin/Globulin Ratio 1.2 I & O for Last 24 hours: Intake & Output 11/18/19 11/19/19 11/20/19 11/21/19 11:59 11:59 11:59 11:59 Intake Total 610 / 610 951 / 951 860 / 860 Output Total 1150 / 1150 4700 / 4700 4750 / 4750 Balance -540 / -540 -3749 / -3749 -3890 / -3890 Weight 307 lb 6.4 oz 305 lb 1 oz 298 lb 4 oz Microbiology Reports for the Last 24 Hours: Microbiology 11/18/19 17:10 Blood Blood Culture - Preliminary NO GROWTH AFTER 48 HOURS 11/18/19 13:05 Blood Blood Culture - Preliminary NO GROWTH AFTER 48 HOURS - *Routine HEENT Exam Head: Present: normocephalic Eye: Present: EOMI, PERRL ENT: Present: mucous membranes moist - *Routine Respiratory Exam Present: CTA bilaterally. Absent: accessory muscle use, rales, rhonchi, wheezes - *Routine Cardiovascular Exam Present: tachycardia. Absent: murmur, gallop, rubs - *Routine Abdominal Exam Present: soft. Absent: tenderness, distended, guarding - *Routine Extremities Exam Present: edema. Absent: calf tenderness - *Routine Neurological Exam Present: alert, oriented X3, moving all extremities Progress Note: A&P (1) Acute systolic congestive heart failure, NYHA class 4 Status: Acute Current Visit: Yes (2) Cardiomyopathy Status: Acute Current Visit: Yes (3) Diabetes mellitus type 2 in obese Status: Acute Current Visit: Yes (4) Obesity (BMI 30-39.9) Status: Chronic Current Visit: Yes (5) Elevated troponin Status: Acute Current Visit: Yes (6) Coronary artery disease Status: Chronic Current Visit: Yes (7) Tachycardia Status: Acute Current Visit: Yes (8) NSTEMI (non-ST elevated myocardial infarction) Status: Acute Current Visit: Yes Assessment and Plan for All Diagnoses:: 1. Severe cardiomyopathy, newly diagnosed. Nonischemic. Continue titrating up Entresto and carvedilol therapy as blood pressure tolerates along with diuretic therapy. LifeVest in place. Anticipate repeating echo in 45 days to decide on AICD. 2. Non-ST elevation VT, type II secondary to CHF and severe cardiomyopathy. 3. Severe systolic congestive heart failure, responding well to diuretic therapy. Patient still has edema but is significantly improved with 12-14 pound weight loss thus far. 4. Diabetes mellitus, per Dr. Talbert 5. Tachycardia, related to severe cardiomyopathy and congestive heart failure.
[2019-11-21 12:16] LABS: POC Glucose,Bedside 161 (70-110)
[2019-11-21 17:30] LABS: POC Glucose,Bedside 134 (70-110)
--- NOTE | 2019-11-21 17:34 | PC.NURSE ---
pt was taught/walked through how to perform a fingerstick. will continue to encourage and work with pt.
[2019-11-21 20:46] LABS: POC Glucose,Bedside 214 (70-110)
[2019-11-22] VITALS (14 sets, daily range): BP systolic 83–109; BP diastolic 43–65; PULSE 91–120; RESP 18–22; TEMP 36.4–36.8; O2SAT 89–96; BMI 39.7
--- NOTE | 2019-11-22 04:17 | PC.NURSE ---
Pt A&O x3. Has slept at intervals this shift. Has had sleep interrupted twice with life vest coming undone. Pt concerned about clasps on vest. Pt sat up to chair early in shift. Was educated on obtaining fingerstick and insulin administration. Pt will be asked to perform self administration this am after review. VSS at this time. He has had periods of hypotension. He is currently on 2L NC while sleeping due to desat in upper 80s. Pt denies any soa or discomfort at this time. F/C draining to bedside with clear, dark yellow urine. 1250 cc total urine output. Pt has remained Sinus Tach with BBB and wandering atrial pacemaker. PVC's and PAC's noted at times. No other concerns at this time. Will continue to monitor.
[2019-11-22 06:08] LABS: Chloride 96 mmol/L (98-107)
[2019-11-22 06:09] LABS: Potassium 3.7 mmoL/L (3.5-5.1); Sodium 134 mmol/L (136-145)
[2019-11-22 06:11] LABS: Blood Urea Nitrogen 27 mg/dl (9-20); Creatinine Clearance Estimated 138 mL/min (50-200); Estimated Glomerular Filt Rate 84 ml/min (>60); GFR (African American) 102 ML/MIN (>60)
[2019-11-22 06:12] LABS: Anion Gap 10.7 mEq/L (5-15); Calcium 8.5 mg/dl (8.4-10.2); Carbon Dioxide 31 mmol/L (22.0-30.0); Glucose 154 mg/dl (74-100)
[2019-11-22 06:13] LABS: Basophils % 0.4 % (0.1-2.0); Eosinophils # 0.1 K/mm3 (0.0-0.4); Eosinophils % 1.2 % (0.1-12.0); Hematocrit 51.2 % (42.0-52.0); Hemoglobin 17.1 g/dL (14.1-18.0); Lymphocytes # 1.5 K/mm3 (0.7-4.5); Lymphocytes % 20.1 % (10-50); Mean Corpuscular HGB Conc 33.4 g/dL (31.8-35.4); Mean Corpuscular Hemoglobin 32.2 pg (27.0-31.2); Mean Corpuscular Volume 96.4 fl (80-94); Mean Platelet Volume 9.6 fl (7.4-10.4); Monocytes # 0.7 K/mm3 (0.1-1.0); Neutrophils % 68.3 % (37.0-80.0); Platelet Count 114 K/mm3 (142-424); Red Blood Count 5.32 M/mm3 (4.60-6.20); Red Cell Distribution Width 13.3 % (11.5-17.5); White Blood Count 7.3 K/mm3 (4.8-10.8)
[2019-11-22 06:38] LABS: POC Glucose,Bedside 126 (70-110)
--- NOTE | 2019-11-22 08:00 | HMH.PNCARD ---
Subjective Date: 11/22/19 Time: 08:00 Principal diagnosis: CHF, CM, Elevated troponins Interval history: 69-year-old white male sitting in bedside chair initially sleeping. Patient responds to verbal stimuli. States his breathing has significantly improved along with his lower extremity edema. Patient's Cobian catheter is still in place with some kyler-colored urine. He is anxious to get home today. LifeVest is in place. Telemetry continues to show mild tachycardia in the 100 to 110 bpm range. Systolic blood pressure is in the 90 to 100 mmHg range. Exam Vital signs and Labs for Last 24 Hours: Temp Pulse Resp BP Pulse Ox 97.5 F L 118 H 20 93/56 L 92 L 11/22/19 04:00 11/22/19 06:15 11/22/19 06:15 11/22/19 06:15 11/22/19 06:15 Laboratory Results - last 24 hr 11/21/19 12:05: POC Glucose 161 H 11/21/19 16:40: POC Glucose 134 H 11/21/19 20:24: POC Glucose 214 H 11/22/19 05:26: WBC 7.3, RBC 5.32, Hgb 17.1, Hct 51.2, MCV 96.4 H, MCH 32.2 H, MCHC 33.4, RDW 13.3, Plt Count 114 L D, MPV 9.6, Neut % (Auto) 68.3, Lymph % (Auto) 20.1, Toole % (Auto) 10.0 H, Eos % (Auto) 1.2, Baso % (Auto) 0.4, Neut # (Auto) 5.0, Lymph # (Auto) 1.5, Toole # (Auto) 0.7, Eos # (Auto) 0.1, Baso # (Auto) 0.0 11/22/19 05:26: Sodium 134 L, Potassium 3.7, Chloride 96 L, Carbon Dioxide 31 H, Anion Gap 10.7, BUN 27 H, Creatinine 0.90, Estimated Creat Clear 138, Estimated GFR 84, Est GFR ( Amer) 102, Glucose 154 H, Calcium 8.5, Magnesium 2.0 11/22/19 06:01: POC Glucose 126 H I & O for Last 24 hours: Intake & Output 11/19/19 11/20/19 11/21/19 11/22/19 11:59 11:59 11:59 11:59 Intake Total 610 / 610 951 / 951 1340 / 1340 600 / 600 Output Total 1150 / 1150 4700 / 4700 4750 / 4750 2800 / 2800 Balance -540 / -540 -3749 / -3749 -3410 / -3410 -2200 / -2200 Weight 307 lb 6.4 oz 305 lb 1 oz 298 lb 4 oz 300 lb - *Routine Respiratory Exam Present: CTA bilaterally. Absent: accessory muscle use, rales, rhonchi, wheezes - *Routine Cardiovascular Exam Present: RRR, tachycardia, irregular rhythm. Absent: murmur, gallop, rubs - *Routine Abdominal Exam Present: soft. Absent: tenderness, distended, guarding - *Routine Extremities Exam Present: edema. Absent: calf tenderness - *Routine Neurological Exam Present: alert, oriented X3, moving all extremities Progress Note: A&P (1) Acute systolic congestive heart failure, NYHA class 4 Status: Acute Current Visit: Yes (2) Cardiomyopathy Status: Acute Current Visit: Yes (3) Diabetes mellitus type 2 in obese Status: Acute Current Visit: Yes (4) Obesity (BMI 30-39.9) Status: Chronic Current Visit: Yes (5) Elevated troponin Status: Acute Current Visit: Yes (6) Coronary artery disease Status: Chronic Current Visit: Yes (7) Tachycardia Status: Acute Current Visit: Yes (8) NSTEMI (non-ST elevated myocardial infarction) Status: Acute Current Visit: Yes Assessment and Plan for All Diagnoses:: 1. Acute systolic congestive heart failure, stage IV, improved clinically with IV and p.o. diuretics. Will switch to PO lasix today and continue PO aldactone. 2. Nonischemic cardiomyopathy, patient is on Entresto and carvedilol therapy along with diuretics. Recheck limited echo in 45 days but likely will give the full 90 days of oral therapy prior to decision regarding AICD implantation. 3. Non-ST elevation MO, type II, clinically stable. Cardiac catheterization revealed [id number] coronary artery disease. Add ASA 81 mg daily. 4. Hyperlipidemia, on statin. 5. DM, on combo of PO med and insulin. 6. Tachycardia, improved but continues due to #1 and #2 above. Should improve with continue therapy. 7. OK for discharge home today on ASA 81 mg daily, Atorvastatin 40 mg daily, Coreg 6.25 mg BID, Entresto 24/26 mg BID, lasix 80 mg BID and aldactone 50 mg BID along with diabetic meds per Dr. Talbert. Follow up in our office in 1 week.
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
--- NOTE | 2019-11-22 08:22 | CA_ITS ---
APPROVED REPORT EXAM: Comprehensive 2D, Doppler, and color-flow Echocardiogram Mold Repairer: Macie Reynolds RT(R) Ht: 6 ft 1 in Wt: 298lbs BSA: 2.55 BP: 93/56 mmHg Indications: Limited echo to recheck EF. CM, pleural effusion, currently wearing lifevest, heart cath 11/18 M-Mode Dimensions LVDd 7.63 cm (3.5-5.7) LVDs 6.73 cm (3.5-5.7) IVSd 1.13 cm (0.6-1.1) PWd 0.80 cm (0.6-1.1) EF (Teich) 24.60% FS 11.80% EDV (Teich) 310.00 mL ESV (Teich) 233.70 mL Left Ventricle Left atrium is moderately enlarged, left ventricle is mildly dilated, severe reduced left ventricular systolic function, visually estimated ejection fraction 25 %, left ventricle is globally hypokinetic. There is abnormal septal motion. Right Ventricle Right atrium right ventricle mildly enlarged with normal contractility. Aortic Valve Aortic valve is thickened and calcified leaflet chordae display good mobility. Mitral Valve Mitral valve leaflets are minimally thickened. Tricuspid Valve Tricuspid valve is grossly normal. Pulmonic Valve Pulmonic valve is poorly visualized. Great Vessels Aortic root is normal size. Pericardium No significant pericardial effusion noted. Conclusion 1. Limited study was performed to evaluate left ventricular systolic function, endocardial surfaces are poorly visualized. 2. Dilated left ventricle, severe reduced left ventricular systolic function, visually estimated ejection fraction 25%, there is abnormal septal motion. 3. A repeat study with Definity contrast is recommended to exclude the presence of left ventricular apical thrombus. Electronically signed by : Arsenio West, 11/22/2019 10:48:11
[2019-11-22 13:20] LABS: POC Glucose,Bedside 166 (70-110)
[2019-11-22 13:20] LABS: POC Glucose,Bedside 356 (70-110)
--- NOTE | 2019-11-22 15:20 | HMH.PHAINT ---
DISCHARGE COUNSELING COMPLETED ON PATIENT. NEW PRESCRIPTIONS INCLUDE FUROSEMIDE, SPIRONOLACTONE, ENTRESTO, FARXIGA, ATORVASTATIN, ASPIRIN, AND CARVEDILOL. HARD SCRIPT FOR GLUCOMETER, LANCETS, AND TEST STRIPS GIVEN TO PATIENT. ALL PRESCRIPTIONS WERE SENT TO [facility] IN [place]. PATIENT VERBALIZED UNDERSTANDING AND HAD NO QUESTIONS AT THIS TIME. -MARIANELA BROWN, VIKYD
== END 2019-11-22 15:35 | disposition home or self-care (01) | DRG 281 ==
LOC: ER 12:43 → 2ND 15:28
PROVIDERS: Internal Medicine; Internal Medicine Adolescent Medicine; Admitting Provider Internal Medicine Adolescent Medicine; Emergency Provider Emergency Medicine; Visit Provider Internal Medicine Adolescent Medicine
PROC: 4A023N7 Measurement of Cardiac Sampling and Pressure, Left Heart, Percutaneous Approach (ICD-10-PCS; principal; 2019-11-19 10:00)
DX: I50.21 Acute systolic (congestive) heart failure (principal); I21.A1 Myocardial infarction type 2; I42.0 Dilated cardiomyopathy; I25.10 Atherosclerotic heart disease of native coronary artery without angina pectoris; E11.9 Type 2 diabetes mellitus without complications; Z82.49 Family history of ischemic heart disease and other diseases of the circulatory system
CPT/HCPCS: 36415; 71045; 71046; 74176; 80048; 80053; 81001; 82803; 82962; 83036; 83605; 83690; 83735; 83880; 84100; 84484; 85025; 87040; 93005; 93306; 93308; 93458; 94660; 94761; 96374; 99152; 99284; C1725; C1760; C1769; J1205; J1644; J2260; Q9957; Q9967

== ENCOUNTER → 2019-11-29 10:35 | Outpatient (CLI) | payer MEDICARE, SELFPAY ==
[2019-11-29 11:48] LABS: Chloride 99 mmol/L (98-107); Potassium 4.4 mmoL/L (3.5-5.1); Sodium 136 mmol/L (136-145)
[2019-11-29 11:51] LABS: Anion Gap 16.4 mEq/L (5-15); Blood Urea Nitrogen 20 mg/dl (9-20); Calcium 9.5 mg/dl (8.4-10.2); Carbon Dioxide 25 mmol/L (22.0-30.0); Estimated Glomerular Filt Rate 84 ml/min (>60); GFR (African American) 102 ML/MIN (>60); Glucose 272 mg/dl (74-100)
[2019-11-29 11:59] LABS: NT Pro Brain Natriuretic Pep. 949 pg/mL (0-125)
== END ==
PROVIDERS: Visit Provider Internal Medicine Cardiovascular Disease
DX: R06.00 Dyspnea, unspecified; E11.69 Type 2 diabetes mellitus with other specified complication; E66.9 Obesity, unspecified; I21.4 Non-ST elevation (NSTEMI) myocardial infarction; I25.10 Atherosclerotic heart disease of native coronary artery without angina pectoris; I42.9 Cardiomyopathy, unspecified; I50.21 Acute systolic (congestive) heart failure; I50.9 Heart failure, unspecified; R00.0 Tachycardia, unspecified
CPT/HCPCS: 36415; 80048; 83880

== ENCOUNTER → 2019-12-04 11:14 | Outpatient (CLI) | payer MEDICARE, SELFPAY | PROVIDERS: PCP Emergency Medicine; Visit Provider Internal Medicine Cardiovascular Disease | DX: G47.33 Obstructive sleep apnea (adult) (pediatric) (principal); R06.83 Snoring; R40.0 Somnolence; R06.00 Dyspnea, unspecified; I25.10 Atherosclerotic heart disease of native coronary artery without angina pectoris; I42.9 Cardiomyopathy, unspecified; R00.0 Tachycardia, unspecified; I21.4 Non-ST elevation (NSTEMI) myocardial infarction | CPT/HCPCS: G0399 ==

== ENCOUNTER 2019-12-06 09:51 | Day surgery (SDC) | payer MEDICARE, SELFPAY ==
[2019-12-06] VITALS (12 sets, daily range): BP systolic 83–131; BP diastolic 46–75; PULSE 87–118; RESP 16–20; TEMP 36.8–37.1; O2SAT 83–100; BMI 38.4
--- NOTE | 2019-12-06 | CA_ITS ---
APPROVED REPORT EXAM: Comprehensive 2D, Doppler, and color-flow Echocardiogram Rice Dryer Mechanic: RT Ilya(R) Ht: 6 ft 1 in Wt: 287lbs BSA: 2.51 BP: 131/55 mmHg Indications: SVT, cardioversion, SOB, Hx of pleural effusions Procedure After obtaining informed consent, patient underwent transesophageal echo in the Forepart Reducer. Type of Sedation : Conscious Sedation The RAFAELA was performed without complications. Synchronized Cardioversion attempted: Successful Synchronized Cardioversion acheived with 150 J Joules after 1 attempt(s). Rhythm following Synchronized Cardioversion: Sinus rhythm with premature atrial complexes Throughout the procedure, the blood pressure, pulse oximetry, cardiac rhythm, and rate were monitored. The patient tolerated the procedure without adverse effects. Recovery from conscious sedation was uneventful and vital signs were stable. Left Ventricle Left ventricle is mildly dilated, there is severe reduced left ventricular systolic function, estimated ejection fraction 25 to 30% in the obtained views. There is no left ventricular thrombus seen. Right Ventricle Right ventricle is mildly enlarged with normal contractility. Atria Left atrium is moderately enlarged, there is no thrombus in the left atrium or left atrial appendage. Right atrium is mildly enlarged Intra-atrial septum is intact, there is no flow across the interatrial septum, agitated saline contrast study fails to identify intracardiac shunt. Aortic Valve Aortic valve is thickened and calcified leaflet continue to display good mobility no masses or aortic insufficiency. Mitral Valve Mitral valve leaflets are minimally thickened, there is no mitral stenosis, there is moderate mitral regurgitation. Tricuspid Valve Tricuspid valve is grossly normal, there is mild tricuspid regurgitation Pulmonic Valve Pulmonic valve is grossly normal. Great Vessels Aortic root is normal size. Ascending arch and descending thoracic aorta is not well-visualized. Pericardium No significant pericardial effusion noted Conclusion 1. Biatrial enlargement that described above, no thrombus seen in the left atrium, left atrial appendage is free of thrombus, there is adequate appendage flow by spectral Doppler. 2. Severely reduced left ventricular systolic function, visually estimated ejection fraction 25 to 30% with left ventricular global hypokinesis in the obtained views. 3. Thickened and calcified aortic valve without aortic stenosis aortic insufficiency. 4. Agitated saline contrast study fails to identify intracardiac shunt. 5. Moderate mitral and mild tricuspid regurgitation. 6. No significant pericardial effusion noted 7. Patient was successfully cardioverted to sinus rhythm with 150 J of synchronized DC current. 8. Patient tolerated the procedure well. Electronically signed by : Arsenio West, 12/06/2019 14:27:01
[2019-12-06 08:59] LABS: Anion Gap 12.5 mEq/L (5-15); Blood Urea Nitrogen 19 mg/dl (9-20); Calcium 9.4 mg/dl (8.4-10.2); Carbon Dioxide 27 mmol/L (22.0-30.0); Chloride 99 mmol/L (98-107); Estimated Glomerular Filt Rate 112 ml/min (>60); GFR (African American) 136 ML/MIN (>60); Glucose 257 mg/dl (74-100); Potassium 4.5 mmoL/L (3.5-5.1); Sodium 134 mmol/L (136-145)
[2019-12-06 09:08] LABS: NT Pro Brain Natriuretic Pep. 1010 pg/mL (0-125)
--- NOTE | 2019-12-06 14:07 | ECG_ITS ---
APPROVED REPORT Exam: Resting ECG HR:91 bpm ECG Measurements Heart Rate 91 AXES OH 214 P 62 QRSd 196 QRS 156 QT 430 T 9 QTc 528 <Conclusion> Sinus rhythm with 1st degree AV block with premature ventricular complexes Possible Left atrial enlargement Right bundle branch block Abnormal ECG Electronically signed by : Eugenio Gamez, 12/06/2019 16:15:48
--- NOTE | 2019-12-06 14:14 | HMH.ANESCL ---
[facility] Anesthesia Checklist - Structural Data Admitted From: Home Planned Operative Procedure/s: myron, cardioversion Consent for Planned Operative Procedure(s) Verified: Yes - Airway Assessment C-Spine Mobility Assessed: Yes TMJ Mobility Assessed: Yes Dentition: Good Dentition - Neurological Assessment Level of Consciousness: Awake, Alert, Appropriate - Anesthesia Plan Anesthesia Risk discussed: Yes Anesthesia Plan: Verified ASA Class: III Anesthesia Type: MAC [facility] History I have reviewed the patient's past medical history: Yes Medical History: Reports:: Diabetes Mellitus Type 2 Denies:: Seizures *Have you ever received a pneumonia vaccine?: No *Have you received a flu vaccine this season?: No Anesthesia experience/problems:: none Other Surgeries: Yes: Cardiac Catheterization - *Social History Educational Level: Completed High School Smoking Status: Never smoker Alcohol Intake: never Substance Use Type: denies use *Occupational Status:: retired Housing: house Household Members: spouse *Travel in the last 8 weeks: None Family Hx:: No significant family history
== END 2019-12-06 14:40 | disposition hospice, home (50) ==
LOC: CATHLAB 09:51
PROVIDERS: Visit Provider Internal Medicine Cardiovascular Disease
PROC: 5A2204Z Restoration of Cardiac Rhythm, Single (ICD-10-PCS; principal; 2019-12-06 10:00)
DX: E11.69 Type 2 diabetes mellitus with other specified complication (principal); I42.8 Other cardiomyopathies; I21.A1 Myocardial infarction type 2; I25.10 Atherosclerotic heart disease of native coronary artery without angina pectoris; Z79.899 Other long term (current) drug therapy; I50.21 Acute systolic (congestive) heart failure; I27.21 Secondary pulmonary arterial hypertension
CPT/HCPCS: 36415; 80048; 83880; 92960; 93005; 93312

== ENCOUNTER → 2020-01-03 11:55 | Day surgery (SDC) | payer MEDICARE, SELFPAY ==
[2020-01-03 12:11] VITALS: BMI 38.1
[2020-01-03 12:55] LABS: Chloride 102 mmol/L (98-107); Sodium 137 mmol/L (136-145)
[2020-01-03 12:56] LABS: Potassium 4.2 mmoL/L (3.5-5.1)
[2020-01-03 12:58] LABS: Alanine Aminotransferase 19 U/L (12-78); Albumin Level 4.2 g/dl (3.5-5.0); Albumin/Globulin Ratio 1.2 (1.1-1.8); Alkaline Phosphatase 78 U/L (38-126); Anion Gap 14.2 mEq/L (5-15); Aspartate Amino Transferase 26 U/L (17-59); Bilirubin,Total 1.6 mg/dl (0.2-1.3); Blood Urea Nitrogen 23 mg/dl (9-20); Carbon Dioxide 25 mmol/L (22.0-30.0); Creatinine Clearance Estimated 133 mL/min (50-200); Estimated Glomerular Filt Rate 84 ml/min (>60); GFR (African American) 102 ML/MIN (>60); Globulin 3.5 g/dL (1.3-3.2); Total Protein,Serum 7.7 g/dl (6.3-8.2)
[2020-01-03 12:59] LABS: Alanine Aminotransferase 19 U/L (12-78); Albumin Level 4.2 g/dl (3.5-5.0); Alkaline Phosphatase 79 U/L (38-126); Aspartate Amino Transferase 26 U/L (17-59); Bilirubin,Direct 0.3 mg/dl (0.0-0.4); Bilirubin,Indirect 1.3 mg/dL (0.0-0.9); Bilirubin,Total 1.6 mg/dl (0.2-1.3); Bilirubin,Unconjugated 1.3 mg/dL (0.0-1.1); Calcium 9.4 mg/dl (8.4-10.2); Glucose 138 mg/dl (74-100); Total Protein,Serum 7.7 g/dl (6.3-8.2)
[2020-01-03 13:05] VITALS: PULSE 101
[2020-01-03 13:16] LABS: T4 (Thyroxine) 8.3 ug/dl (5.53-11.0)
[2020-01-03 13:47] LABS: Basophils # 0.1 K/mm3 (0-0.2); Basophils % 1.2 % (0.1-2.0); Eosinophils # 0.2 K/mm3 (0.0-0.4); Eosinophils % 2.1 % (0.1-12.0); Hematocrit 54.4 % (42.0-52.0); Mean Corpuscular HGB Conc 34.5 g/dL (31.8-35.4); Mean Corpuscular Hemoglobin 33.4 pg (27.0-31.2); Mean Corpuscular Volume 96.6 fl (80-94); Mean Platelet Volume 8.6 fl (7.4-10.4); Monocytes # 0.7 K/mm3 (0.1-1.0); Monocytes % 9.5 % (1.7-9.3); Neutrophils # 4.6 K/mm3 (1.8-7.8); Neutrophils % 61.2 % (37.0-80.0); Platelet Count 165 K/mm3 (142-424); Red Blood Count 5.63 M/mm3 (4.60-6.20); White Blood Count 7.6 K/mm3 (4.8-10.8)
[2020-01-03 13:54] LABS: Hemoglobin 18.8 g/dL (14.1-18.0)
--- NOTE | 2020-01-23 07:30 | HMH.PROC ---
[facility] Procedure Note Procedure Note:: Scheduled cardioversion will be postponed due to anesthesia being unavailable, due to the emergency, to provide sedation in this patient with COPD and prior hypoxia with sedation.
== END ==
PROVIDERS: PCP Emergency Medicine; Visit Provider Internal Medicine Cardiovascular Disease
DX: I48.91 Unspecified atrial fibrillation (principal); Z53.8 Procedure and treatment not carried out for other reasons
CPT/HCPCS: 80053; 80076; 84436; 84443; 85025; 92960

== ENCOUNTER 2020-01-07 10:54 | Day surgery (SDC) | payer MEDICARE, SELFPAY ==
--- NOTE | 2020-01-07 | ECG_ITS ---
APPROVED REPORT Exam: Resting ECG HR:83 bpm ECG Measurements Heart Rate 83 AXES AK 234 P -3 QRSd 206 QRS 166 QT 476 T 9 QTc 559 <Conclusion> Sinus rhythm with 1st degree AV block with premature atrial complexes with aberrant conduction Right bundle branch block Abnormal ECG Electronically signed by : Boris Pelayo, 01/11/2020 14:19:58
[2020-01-07 11:08] VITALS: BMI 38.1
[2020-01-07 12:05] VITALS: BP 91/66; RESP 20; O2SAT 94
[2020-01-07 12:12] VITALS: PULSE 100
[2020-01-07 12:16] VITALS: BP 96/57; RESP 20; TEMP 36.6; O2SAT 94
--- NOTE | 2020-01-07 15:09 | P.PCN_ITS ---
[facility] Cardioversion Date: 01/07/20 Provider:: CASE Hurd Procedure Performed:: Synchronized electrical cardioversion Diagnosis:: Atrial fibrillation Procedure Summary:: Patient was brought to the cardiac Sail Repairer as an outpatient. After informed consent obtained, anesthesia provided sedation and patient received a single 200 J synchronized electrical shock converting him from atrial fibrillation to normal sinus rhythm. Patient tolerated the procedure without complications. Complications:: None Conculsion:: Successful electrical cardioversion
== END 2020-01-07 12:49 | disposition home or self-care (01) ==
PROVIDERS: PCP Internal Medicine Adolescent Medicine; Visit Provider Internal Medicine Cardiovascular Disease
DX: I48.91 Unspecified atrial fibrillation (principal); I50.23 Acute on chronic systolic (congestive) heart failure; I25.10 Atherosclerotic heart disease of native coronary artery without angina pectoris; Z79.899 Other long term (current) drug therapy
CPT/HCPCS: 92960; 93005

== ENCOUNTER → 2020-01-22 13:58 | Outpatient (CLI) | payer MEDICARE, SELFPAY ==
--- NOTE | 2020-01-22 13:58 | NM_ITS ---
PROCEDURE: NM MUGA CLINICAL INDICATION: cardiomyopathy COMPARISON: No exams were available for comparison TECHNIQUE: Dose: 24.5 mCi technetium pertechnetate FINDINGS: Ejection fraction is 29 percent. There is global hypokinesia with dyskinesia the inferior wall. IMPRESSION: Low ejection fraction 29 percent with global hypokinesia and dyskinesia of the inferior wall Dictated by: Daniel Gorman MD 01/23/2020 17:43 Electronically signed by Daniel Gorman MD in [place] 01/23/2020 17:43
== END ==
PROVIDERS: PCP Internal Medicine Adolescent Medicine; Visit Provider Internal Medicine Cardiovascular Disease
DX: I25.10 Atherosclerotic heart disease of native coronary artery without angina pectoris (principal); I42.9 Cardiomyopathy, unspecified; I45.10 Unspecified right bundle-branch block; I48.92 Unspecified atrial flutter; I50.23 Acute on chronic systolic (congestive) heart failure
CPT/HCPCS: 78473

== ENCOUNTER → 2020-02-19 09:44 | Outpatient (CLI) | payer MEDICARE, SELFPAY ==
[2020-02-19 11:02] LABS: Alanine Aminotransferase 30 U/L (12-78); Albumin Level 4.3 g/dl (3.5-5.0); Alkaline Phosphatase 70 U/L (38-126); Aspartate Amino Transferase 28 U/L (17-59); Bilirubin,Direct 0.1 mg/dl (0.0-0.4); Bilirubin,Total 1.1 mg/dl (0.2-1.3); Total Protein,Serum 7.4 g/dl (6.3-8.2)
[2020-02-19 11:21] LABS: Free T4 (Free Thyroxine) 1.23 ng/dl (0.78-2.19)
[2020-02-19 11:35] LABS: Thyroid Stimulating Hormone 2.82 uIU/mL (0.465-4.68)
== END ==
PROVIDERS: Internal Medicine Cardiovascular Disease; Visit Provider Internal Medicine Adolescent Medicine
DX: I25.10 Atherosclerotic heart disease of native coronary artery without angina pectoris (principal); I27.21 Secondary pulmonary arterial hypertension; I42.9 Cardiomyopathy, unspecified; I50.23 Acute on chronic systolic (congestive) heart failure; I50.9 Heart failure, unspecified; R00.0 Tachycardia, unspecified
CPT/HCPCS: 36415; 80076; 84439; 84443

== ENCOUNTER 2020-03-04 08:50 | Day surgery (SDC) | payer MEDICARE, SELFPAY ==
--- NOTE | 2020-03-04 | IR_ITS ---
APPROVED REPORT Patient Location: Outpatient Bulb Sorter: MARC Gomez RT (R) PROCEDURES 1. Pocket formation for biventricular pacemaker generator with cardiac resynchronization/defibrillator therapy. 2. Placement of atrial sensing and pacing lead into the right atrial appendage. 3. Placement of a right ventricular sensing, pacing and shocking lead in the right ventricular apex. 4. Placement of left ventricular sensing pacing lead via the coronary sinus. 5. Permanent cardiac resynchronization therapy with ICD implantation/biventricular pacemaker. INDICATION Systolic Congestive Heart Failure, ejection <35%, Wide QRS >120ms, [place] Heart Assoication Class 3 Congestive Heart Failure Informed consent was obtained prior to the procedure. COMPLICATIONS None Estimated Blood Loss: Less than 10 ml TECHNIQUE 1% Lidocaine with epinephrine used to anesthetized the left anterior aspect of the chest. Scalpel was used to make the initial cutaneous incision while electrocautery was used to dissect down tinto the fascia. The fascia was lifted off the pectoralis muscle and digitally manipulated creating a pocket for the defibrillator. The patient was then placed in Trendelenburg position and the subclavian vein was accessed 3 times via the Selinger technique. A 8 Swiss sheath was placed under fluoroscopic guidance into the subclavian vein. The dilator was removed from the sheath. Using fluoroscopic guidance, the ventricular lead was placed into the right ventricular apex, screwed and secured into place. Electronic interrogation proved acceptable thresholds and voltage within the lead. Using 3-0 silk, the ventricular lead was then secured into place and sheath peeled away. Following this, a 9.5 Swiss sheath and dilator was then placed over one of the wires while keeping the other wire in place within the subclavian vein. The dilator and wire was removed from the sheath. Using fluoroscopic guidance, contrast was used to visualize the coronary sinus, the left ventricular lead was placed into the coronary sinus. Electronic interrogation proved acceptable thresholds and voltage within the lead. Using 3-0 silk, the left ventricular lead was then secured into place and sheath peeled away.An additional 6 Swiss fresh sheath and dilator was placed over the existing wire, dilator and wire then removed. Using fluoroscopic guidance, the atrial lead was then placed into the right atrial appendage and screwed and secured in place. Electrical interrogation demonstrated acceptable thresholds and voltage number. The atrial lead was then secured into place using 3-0 silk and sheath peeled away. 1 gram of Ancef was used to flush the pocket. All 3 leads were connected to generator and tested via computer. The defibrillator then secured to the fascia. Monocryl was used to close the subcutaneous layers while yo were used to close the cutaneous layer. A pressure dressing was placed and the patient was transferred to the postop holding area in stable condition for postoperative care. INTERROGATION Generator Model: PartyLine[employer] X4 UNISHEAR OPERATOR-D IS-1/DF4/IS4 G247 Generator Serial No: [id number] RA Lead Model: [employer] MRI IS-1 Bi Positive Fix RA/RV 52 cm 7741 RA Lead Serial No: [id number] RV Lead Model: [place] 4-Front Active Fix Dual Coil 64 cm 0676 RA Lead Serial No: [id number] LV Lead Model: Acuity X4 Spiral S LVA QuadElectrode IS4 Passive 86 cm 4674 LV Lead Serial No: [id number] Device Measurements: RA Lead: Intrinsic:6.0 mV Threshold: 1.0V@0.4ms Impedence: 700 Ohms RV Lead: Intrinsic: 8.5 mV Threshold: 0.5V@0.4ms Impedence: 647 Ohms LV Lead: Intrinsic: 6.0 mV Threshold: 3.0V@1.0ms Impedence: 1200 Ohm
[2020-03-04 09:00] VITALS: BMI 37.7
[2020-03-04 09:12] VITALS: BP 113/81; PULSE 66; RESP 18; TEMP 36.1; O2SAT 89
[2020-03-04 09:33] LABS: Chloride 101 mmol/L (98-107); Potassium 4.4 mmoL/L (3.5-5.1); Sodium 136 mmol/L (136-145)
[2020-03-04 09:36] LABS: Anion Gap 12.4 mEq/L (5-15); Blood Urea Nitrogen 18 mg/dl (9-20); Calcium 9.4 mg/dl (8.4-10.2); Carbon Dioxide 27 mmol/L (22.0-30.0); Creatinine Clearance Estimated 132 mL/min (50-200); Estimated Glomerular Filt Rate 112 ml/min (>60); GFR (African American) 136 ML/MIN (>60); Glucose 139 mg/dl (74-100)
[2020-03-04 09:46] LABS: Basophils % 0.4 % (0.1-2.0); Eosinophils # 0.2 K/mm3 (0.0-0.4); Eosinophils % 2.6 % (0.1-12.0); Hematocrit 50.8 % (42.0-52.0); Lymphocytes # 1.7 K/mm3 (0.7-4.5); Mean Corpuscular HGB Conc 35.4 g/dL (31.8-35.4); Mean Corpuscular Hemoglobin 34.2 pg (27.0-31.2); Mean Corpuscular Volume 96.6 fl (80-94); Mean Platelet Volume 7.7 fl (7.4-10.4); Monocytes # 0.5 K/mm3 (0.1-1.0); Neutrophils % 67.1 % (37.0-80.0); Platelet Count 157 K/mm3 (142-424); Red Blood Count 5.26 M/mm3 (4.60-6.20); Red Cell Distribution Width 14.4 % (11.5-17.5); White Blood Count 7.5 K/mm3 (4.8-10.8)
--- NOTE | 2020-03-04 11:01 | HMH.ANESCL ---
[facility] Anesthesia Checklist - Patient Identification Patient Identification: Arm Band, Verbal (Name & ) - Structural Data Admitted From: Home Planned Operative Procedure/s: Placement of Bi-ventriculer pacemaker Consent for Planned Operative Procedure(s) Verified: Yes Verified Documents: Surgical Consent, History and Physical - NPO Status Verified Time NPO: 00:00 - Chart Verification Results Verified: CBC, BMP - Additional verifications Anesthesia Reactions: No Hx Blood Transfusions: No Blood Transfusion Reaction: No - Airway Assessment C-Spine Mobility Assessed: Yes (MP3, TMD 4) TMJ Mobility Assessed: Yes Dentition: Poor Dentition (Broken and missing teeth) - Neurological Assessment Level of Consciousness: Awake, Alert, Appropriate, Follows Commands Hx Seizures: No Numbness or tingling in extremities: No - Anesthesia Plan Anesthesia Risk discussed: Yes Anesthesia Plan: Verified ASA Class: III Anesthesia Type: MAC [facility] History I have reviewed the patient's past medical history: Yes Medical History: Reports:: Atherosclerotic Heart Disease, Atrial Fibrillation (Atrial flutter), Cardiomyopathy, Congestive Heart Failure, Coronary Artery Disease, Diabetes Mellitus Type 2, Hyperlipidemia Denies:: Cancer, Diabetes Mellitus Type 1, Internal Pacemaker, MRSA, Seizures *Have you ever received a pneumonia vaccine?: No *Have you received a flu vaccine this season?: No Other Medical History: Denies: Blood Transfusion Reaction Comment:: STALIN, pulmonary HTN, obesity Anesthesia experience/problems:: None Other Surgeries: Yes: Cardiac Catheterization, Coronary Stent. No: Pacemaker Amputation: No Fractures: No - *Social History Smoking Status: Never smoker Alcohol Intake: never Alcohol Intake Frequency:: other Substance Use Type: denies use *Occupational Status:: employed Housing: house Household Members: spouse *Travel in the last 8 weeks: None Family Hx:: Coronary Artery Disease
[2020-03-04 14:35] VITALS: BP 124/55; PULSE 66; RESP 16; O2SAT 90
--- NOTE | 2020-03-04 14:39 | XR_ITS ---
PROCEDURE: XR CHEST PORTABLE CLINICAL HISTORY: Confirm pacemaker/AID placement COMPARISON: XR CHEST 2V from 11/18/2019 XR CHEST PORTABLE from 11/20/2019 FINDINGS: Left subclavian multilead AICD/pacer apparatus is placed with the atrial lead appropriately position within the right atrial appendage. The ventricular leads courses into the right atrium and subsequently enters the right ventricle with the tips at the right ventricular apex. Metallic skin yo are present laterally over the left anterior chest wall. No acute bony abnormalities. There is a moderate cardiomegaly. Mildly prominent peripheral pulmonary vascular markings. Mild atherosclerotic tortuosity of the aortic arch. The lungs are somewhat under expanded. Mildly diffusely increased interstitial/vascular markings are seen in both lungs. There is no demonstrated pleural effusion or pneumothorax. IMPRESSION: 1. Status post appropriate placement of the left AICD/cardiac pacemaker as described. 2. Cardiomegaly and diffuse chronic mild interstitial edema/vascular congestion. Dictated by: Vero Cano 03/04/2020 15:20 Electronically signed by Vero Cano in [place] 03/04/2020 15:20
[2020-03-04 15:05] VITALS: BP 116/57; PULSE 60; RESP 20; O2SAT 91
[2020-03-04 15:20] VITALS: BP 139/66; PULSE 60; RESP 18; O2SAT 90
[2020-03-04 15:35] VITALS: BP 146/65; PULSE 60; RESP 18; O2SAT 94
[2020-03-04 15:50] VITALS: BP 146/65; PULSE 60; RESP 18; O2SAT 94
== END 2020-03-04 15:56 | disposition home or self-care (01) ==
LOC: CATHLAB 08:51
PROVIDERS: PCP Internal Medicine Adolescent Medicine; Visit Provider Internal Medicine
PROC: 0JH609Z Insertion of Cardiac Resynchronization Defibrillator Pulse Generator into Chest Subcutaneous Tissue and Fascia, Open Approach (ICD-10-PCS; CPT 33249; principal; 2020-03-04 09:00)
DX: I42.9 Cardiomyopathy, unspecified (principal); Z45.02 Encounter for adjustment and management of automatic implantable cardiac defibrillator; I48.91 Unspecified atrial fibrillation; I50.23 Acute on chronic systolic (congestive) heart failure; E11.9 Type 2 diabetes mellitus without complications; I25.10 Atherosclerotic heart disease of native coronary artery without angina pectoris; Z79.82 Long term (current) use of aspirin; Z79.84 Long term (current) use of oral hypoglycemic drugs; Z79.01 Long term (current) use of anticoagulants; I27.21 Secondary pulmonary arterial hypertension; I45.10 Unspecified right bundle-branch block
CPT/HCPCS: 33249; 71045; 80048; 85025; C1769; C1882; C1895; C1898; C1900; J2704; Q9967

== ENCOUNTER → 2020-05-28 09:53 | Outpatient (CLI) | payer MEDICARE, SELFPAY ==
[2020-05-28 11:03] LABS: Chloride 100 mmol/L (98-107); Potassium 4.3 mmoL/L (3.5-5.1); Sodium 137 mmol/L (136-145)
[2020-05-28 11:05] LABS: Alanine Aminotransferase 30 U/L (12-78); Aspartate Amino Transferase 29 U/L (17-59); Blood Urea Nitrogen 22 mg/dl (9-20); Estimated Glomerular Filt Rate 84 ml/min (>60); GFR (African American) 102 ML/MIN (>60)
[2020-05-28 11:06] LABS: Albumin Level 4.7 g/dl (3.5-5.0); Albumin/Globulin Ratio 1.3 (1.1-1.8); Alkaline Phosphatase 113 U/L (38-126); Anion Gap 15.3 mEq/L (5-15); Bilirubin,Total 0.9 mg/dl (0.2-1.3); Carbon Dioxide 26 mmol/L (22.0-30.0); Chol/HDL Ratio 2.9 (1-3.5); Cholesterol 161 mg/dl (140-200); Globulin 3.5 g/dL (1.3-3.2); Glucose 181 mg/dl (74-100); HDL Cholesterol 55 mg/dl (40-60); Total Protein,Serum 8.2 g/dl (6.3-8.2); Triglycerides 122 mg/dl (30-150); VLDL Cholesterol 24 mg/dL (0-40)
[2020-05-28 11:21] LABS: Direct LDL Cholesterol 82.06 mg/dL (100-129)
[2020-05-28 12:07] LABS: Hemoglobin A1C 6.3 % (4.0-6.0)
== END ==
PROVIDERS: Visit Provider Internal Medicine Adolescent Medicine
DX: E11.9 Type 2 diabetes mellitus without complications (principal); I50.9 Heart failure, unspecified
CPT/HCPCS: 36415; 80053; 80061; 83036

== ENCOUNTER → 2020-09-04 13:10 | Outpatient (CLI) | payer MEDICARE, SELFPAY ==
--- NOTE | 2020-09-04 13:31 | XR_ITS ---
PROCEDURE: XR CHEST 2V CLINICAL HISTORY: amiodarone Heart disease, arrhythmia COMPARISON: CR XR CHEST 2V from 11/18/2019 CR XR CHEST PORTABLE from 11/20/2019 CR XR CHEST PORTABLE from 03/04/2020 FINDINGS: Normal heart size. Are biventricular and right atrial pacemaker leads present from left subclavian approach. The lungs are clear without infiltrates, suspicious nodules, or pleural effusions. Mild degenerative changes thoracic spine. IMPRESSION: No acute finding. No convincing evidence of amiodarone lung toxicity. Dictated by: Daniel Gorman MD 09/04/2020 15:12 Daniel Gorman MD in [facility] 09/04/2020 15:12
[2020-09-04 14:33] LABS: Alanine Aminotransferase 29 U/L (12-78); Albumin Level 4.4 g/dl (3.5-5.0); Alkaline Phosphatase 105 U/L (38-126); Aspartate Amino Transferase 37 U/L (17-59); Bilirubin,Direct 0.3 mg/dl (0.0-0.4); Bilirubin,Indirect 0.3 mg/dL (0.0-0.9); Bilirubin,Total 0.6 mg/dl (0.2-1.3); Bilirubin,Unconjugated 0.3 mg/dL (0.0-1.1)
[2020-09-04 14:48] LABS: Free T4 (Free Thyroxine) 1.63 ng/dl (0.78-2.19)
[2020-09-04 15:03] LABS: Thyroid Stimulating Hormone 2.78 uIU/mL (0.465-4.68)
== END ==
PROVIDERS: Visit Provider Urology
DX: I25.10 Atherosclerotic heart disease of native coronary artery without angina pectoris (principal); I27.21 Secondary pulmonary arterial hypertension; I42.9 Cardiomyopathy, unspecified; I48.92 Unspecified atrial flutter; I50.23 Acute on chronic systolic (congestive) heart failure; I50.9 Heart failure, unspecified; Z95.810 Presence of automatic (implantable) cardiac defibrillator
CPT/HCPCS: 36415; 71046; 80076; 84439; 84443

== ENCOUNTER → 2021-01-22 09:38 | Outpatient (CLI) | payer MEDICARE, SELFPAY ==
[2021-01-22 10:24] LABS: Basophils % 0.4 % (0.1-2.0); Eosinophils # 0.2 K/mm3 (0.0-0.4); Eosinophils % 1.8 % (0.1-12.0); Hematocrit 50.4 % (42.0-52.0); Hemoglobin 16.9 g/dL (14.1-18.0); Lymphocytes # 1.8 K/mm3 (0.7-4.5); Lymphocytes % 21.5 % (10-50); Mean Corpuscular HGB Conc 33.6 g/dL (31.8-35.4); Mean Corpuscular Hemoglobin 32.1 pg (27.0-31.2); Mean Corpuscular Volume 95.5 fl (80-94); Mean Platelet Volume 8.5 fl (7.4-10.4); Monocytes # 0.6 K/mm3 (0.1-1.0); Neutrophils # 5.8 K/mm3 (1.8-7.8); Neutrophils % 69.1 % (37.0-80.0); Platelet Count 181 K/mm3 (142-424); Red Blood Count 5.27 M/mm3 (4.60-6.20); Red Cell Distribution Width 14.7 % (11.5-17.5); White Blood Count 8.4 K/mm3 (4.8-10.8)
[2021-01-22 10:33] LABS: Hemoglobin A1C 7.3 % (4.0-6.0)
[2021-01-22 10:49] LABS: Alanine Aminotransferase 39 U/L (12-78); Albumin Level 4.7 g/dl (3.5-5.0); Albumin/Globulin Ratio 1.5 (1.1-1.8); Alkaline Phosphatase 86 U/L (38-126); Anion Gap 20.6 mEq/L (5-15); Aspartate Amino Transferase 34 U/L (17-59); Bilirubin,Total 1.3 mg/dl (0.2-1.3); Blood Urea Nitrogen 37 mg/dl (9-20); Calcium 9.5 mg/dl (8.4-10.2); Carbon Dioxide 21 mmol/L (22.0-30.0); Chloride 100 mmol/L (98-107); Chol/HDL Ratio 3.1 (1-3.5); Cholesterol 158 mg/dl (140-200); Estimated Glomerular Filt Rate 50 ml/min (>60); GFR (African American) 61 ML/MIN (>60); Globulin 3.2 g/dL (1.3-3.2); Glucose 237 mg/dl (74-100); HDL Cholesterol 51 mg/dl (40-60); Potassium 4.6 mmoL/L (3.5-5.1); Sodium 137 mmol/L (136-145); Total Protein,Serum 7.9 g/dl (6.3-8.2); Triglycerides 169 mg/dl (30-150); VLDL Cholesterol 34 mg/dL (0-40)
[2021-01-22 11:00] LABS: Direct LDL Cholesterol 80.21 mg/dL (100-129)
== END ==
PROVIDERS: Visit Provider Internal Medicine Adolescent Medicine
DX: I50.22 Chronic systolic (congestive) heart failure (principal); E11.9 Type 2 diabetes mellitus without complications; Z79.84 Long term (current) use of oral hypoglycemic drugs
CPT/HCPCS: 36415; 80053; 80061; 83036; 85025

== ENCOUNTER → 2021-04-09 08:35 | Outpatient (CLI) | payer MEDICARE, SELFPAY ==
--- NOTE | 2021-04-09 08:45 | XR_ITS ---
PROCEDURE: XR CHEST 2V CLINICAL HISTORY: amiodarone therapy. Checkup, nonsmoker COMPARISON: CR XR CHEST PORTABLE from 11/20/2019 CR XR CHEST PORTABLE from 03/04/2020 CR XR CHEST 2V from 09/04/2020 FINDINGS: There is borderline cardiomegaly. The left-sided cardiac pacemaker is again noted with dual chamber electrodes and right atrial electrode noted in place. The lungs are clear without infiltrates, suspicious nodules, or pleural effusions. No acute bony abnormalities. IMPRESSION: Stable chest with no findings of amiodarone toxicity Dictated by: Dr. Vazquez Guerrero MD 04/09/2021 09:08 Dr. Vazquez Guerrero MD in [facility] 04/09/2021 09:08
[2021-04-09 09:38] LABS: Alanine Aminotransferase 32 U/L (12-78); Alkaline Phosphatase 88 U/L (38-126); Aspartate Amino Transferase 28 U/L (17-59); Bilirubin,Direct 0.4 mg/dl (0.0-0.4); Bilirubin,Indirect 0.2 mg/dL (0.0-0.9); Bilirubin,Total 0.6 mg/dl (0.2-1.3); Bilirubin,Unconjugated 0.2 mg/dL (0.0-1.1); Total Protein,Serum 7.1 g/dl (6.3-8.2)
[2021-04-09 10:09] LABS: Thyroid Stimulating Hormone 2.72 uIU/mL (0.465-4.68)
[2021-04-09 11:48] LABS: Free T4 (Free Thyroxine) 1.58 ng/dl (0.78-2.19)
== END ==
PROVIDERS: Visit Provider Urology
DX: I25.10 Atherosclerotic heart disease of native coronary artery without angina pectoris (principal); I27.21 Secondary pulmonary arterial hypertension; I42.9 Cardiomyopathy, unspecified; I48.92 Unspecified atrial flutter; I50.23 Acute on chronic systolic (congestive) heart failure; Z95.810 Presence of automatic (implantable) cardiac defibrillator
CPT/HCPCS: 36415; 71046; 80076; 84439; 84443

== ENCOUNTER → 2021-04-27 09:36 | Outpatient (CLI) | payer MEDICARE, SELFPAY ==
[2021-04-27 10:27] LABS: Hemoglobin A1C 7.6 % (4.0-6.0)
[2021-04-27 10:48] LABS: Chloride 105 mmol/L (98-107); Sodium 138 mmol/L (136-145)
[2021-04-27 10:50] LABS: Alanine Aminotransferase 32 U/L (12-78); Alkaline Phosphatase 82 U/L (38-126); Aspartate Amino Transferase 36 U/L (17-59); Bilirubin,Total 0.6 mg/dl (0.2-1.3); Blood Urea Nitrogen 25 mg/dl (9-20); Estimated Glomerular Filt Rate 74 ml/min (>60); GFR (African American) 90 ML/MIN (>60)
[2021-04-27 10:51] LABS: Albumin Level 4.1 g/dl (3.5-5.0); Albumin/Globulin Ratio 1.2 (1.1-1.8); Carbon Dioxide 23 mmol/L (22.0-30.0); Globulin 3.4 g/dL (1.3-3.2); Glucose 182 mg/dl (74-100); Total Protein,Serum 7.5 g/dl (6.3-8.2)
== END ==
PROVIDERS: Visit Provider Internal Medicine Adolescent Medicine
DX: E11.9 Type 2 diabetes mellitus without complications (principal); Z79.84 Long term (current) use of oral hypoglycemic drugs
CPT/HCPCS: 36415; 80053; 83036

== ENCOUNTER → 2021-07-27 09:52 | Outpatient (CLI) | payer MEDICARE, SELFPAY ==
[2021-07-27 11:02] LABS: Chloride 104 mmol/L (98-107); Sodium 140 mmol/L (136-145)
[2021-07-27 11:03] LABS: Potassium 4.5 mmoL/L (3.5-5.1)
[2021-07-27 11:05] LABS: Alanine Aminotransferase 40 U/L (12-78); Albumin Level 4.6 g/dl (3.5-5.0); Albumin/Globulin Ratio 1.5 (1.1-1.8); Alkaline Phosphatase 84 U/L (38-126); Anion Gap 16.5 mEq/L (5-15); Aspartate Amino Transferase 34 U/L (17-59); Bilirubin,Total 0.5 mg/dl (0.2-1.3); Blood Urea Nitrogen 16 mg/dl (9-20); Calcium 9.4 mg/dl (8.4-10.2); Carbon Dioxide 24 mmol/L (22.0-30.0); Estimated Glomerular Filt Rate 74 ml/min (>60); GFR (African American) 90 ML/MIN (>60); Globulin 3.1 g/dL (1.3-3.2); Glucose 195 mg/dl (74-100); Total Protein,Serum 7.7 g/dl (6.3-8.2)
[2021-07-27 11:30] LABS: Hemoglobin A1C 6.9 % (4.0-6.0)
== END ==
PROVIDERS: Visit Provider Internal Medicine Adolescent Medicine
DX: E11.9 Type 2 diabetes mellitus without complications (principal); I50.9 Heart failure, unspecified; Z79.84 Long term (current) use of oral hypoglycemic drugs
CPT/HCPCS: 36415; 80053; 83036

== ENCOUNTER → 2021-11-08 10:43 | Outpatient (CLI) | payer MEDICARE, SELFPAY ==
[2021-11-08 11:25] LABS: Basophils # 0.2 K/mm3 (0-0.2); Eosinophils # 0.2 K/mm3 (0.0-0.4); Hematocrit 56.2 % (42.0-52.0); Lymphocytes # 1.4 K/mm3 (0.7-4.5); Lymphocytes % 19.1 % (10-50); Mean Corpuscular HGB Conc 32.9 g/dL (31.8-35.4); Mean Corpuscular Hemoglobin 32.7 pg (27.0-31.2); Mean Corpuscular Volume 99.4 fl (80-94); Mean Platelet Volume 8.5 fl (7.4-10.4); Monocytes # 0.6 K/mm3 (0.1-1.0); Monocytes % 7.5 % (1.7-9.3); Neutrophils # 5.1 K/mm3 (1.8-7.8); Neutrophils % 69.4 % (37.0-80.0); Platelet Count 165 K/mm3 (142-424); Red Blood Count 5.66 M/mm3 (4.60-6.20); Red Cell Distribution Width 14.7 % (11.5-17.5); White Blood Count 7.4 K/mm3 (4.8-10.8)
[2021-11-08 11:26] LABS: Hemoglobin 18.5 g/dL (14.1-18.0)
[2021-11-08 11:39] LABS: Alanine Aminotransferase 39 U/L (12-78); Albumin Level 4.5 g/dl (3.5-5.0); Alkaline Phosphatase 80 U/L (38-126); Anion Gap 12.6 mEq/L (5-15); Aspartate Amino Transferase 32 U/L (17-59); Bilirubin,Indirect 1.1 mg/dL (0.0-0.9); Bilirubin,Total 1.1 mg/dl (0.2-1.3); Bilirubin,Unconjugated 1.1 mg/dL (0.0-1.1); Blood Urea Nitrogen 27 mg/dl (9-20); Carbon Dioxide 23 mmol/L (22.0-30.0); Chloride 106 mmol/L (98-107); Chol/HDL Ratio 3.4 (1-3.5); Cholesterol 149 mg/dl (140-200); Estimated Glomerular Filt Rate 66 ml/min (>60); GFR (African American) 80 ML/MIN (>60); Glucose 159 mg/dl (74-100); HDL Cholesterol 44 mg/dl (40-60); Potassium 4.6 mmoL/L (3.5-5.1); Sodium 137 mmol/L (136-145); Total Protein,Serum 7.6 g/dl (6.3-8.2); Triglycerides 131 mg/dl (30-150); VLDL Cholesterol 26 mg/dL (0-40)
[2021-11-08 11:50] LABS: Direct LDL Cholesterol 73.12 mg/dL (100-129)
[2021-11-08 11:56] LABS: Free T4 (Free Thyroxine) 1.61 ng/dl (0.78-2.19)
[2021-11-08 12:10] LABS: Thyroid Stimulating Hormone 2.68 uIU/mL (0.465-4.68)
== END ==
PROVIDERS: Visit Provider Nurse Practitioner Family
DX: I25.10 Atherosclerotic heart disease of native coronary artery without angina pectoris (principal); I27.21 Secondary pulmonary arterial hypertension; I42.9 Cardiomyopathy, unspecified; I48.92 Unspecified atrial flutter; I50.23 Acute on chronic systolic (congestive) heart failure; I50.9 Heart failure, unspecified; Z79.899 Other long term (current) drug therapy; Z95.810 Presence of automatic (implantable) cardiac defibrillator
CPT/HCPCS: 36415; 80048; 80061; 80076; 84439; 84443; 85025; 99195

== ENCOUNTER 2021-11-12 11:26 | Outpatient (CLI) | payer MEDICARE, SELFPAY ==
[2021-11-12 11:55] VITALS: BP 102/65; PULSE 81; RESP 18
[2021-11-12 12:25] VITALS: BP 104/71; PULSE 77; RESP 18
== END 2021-11-12 12:25 | disposition home or self-care (01) ==
PROVIDERS: PCP Internal Medicine Adolescent Medicine; Visit Provider Internal Medicine
DX: I25.10 Atherosclerotic heart disease of native coronary artery without angina pectoris (principal)

== ENCOUNTER → 2021-12-13 09:35 | Outpatient (CLI) | payer MEDICARE, SELFPAY ==
--- NOTE | 2021-12-13 09:39 | XR_ITS ---
FINAL REPORT CLINICAL HISTORY: on amio FINDINGS: Cardiomegaly is noted. A left subclavian ICD is present. The mediastinum is unremarkable. There is mild bibasilar scarring or atelectasis. There is no pneumothorax. The bony thorax is intact. IMPRESSION: Mild bibasilar scarring or atelectasis. Reviewed, Interpreted and Dictated by Supa Zimmer III, MD Transcribed by Jaky Patten Authenticated by Supa Zimmer III, MD on 12/13/2021 11:20:46 AM [facility]
== END ==
PROVIDERS: PCP Internal Medicine Adolescent Medicine; Visit Provider Nurse Practitioner
DX: E11.69 Type 2 diabetes mellitus with other specified complication (principal); E66.9 Obesity, unspecified; G47.33 Obstructive sleep apnea (adult) (pediatric); I25.10 Atherosclerotic heart disease of native coronary artery without angina pectoris; I27.21 Secondary pulmonary arterial hypertension; I42.9 Cardiomyopathy, unspecified; I45.10 Unspecified right bundle-branch block; I48.92 Unspecified atrial flutter; I50.23 Acute on chronic systolic (congestive) heart failure; R94.31 Abnormal electrocardiogram [ECG] [EKG]; Z79.84 Long term (current) use of oral hypoglycemic drugs; Z68.41 Body mass index [BMI] 40.0-44.9, adult
CPT/HCPCS: 71046

== ENCOUNTER → 2022-06-28 10:07 | Outpatient (CLI) | payer MEDICARE, SELFPAY ==
[2022-06-28 10:25] LABS: MANUAL DIFFERENTIAL MANUAL DIFFERENTIAL (MANUAL DIFF)
--- NOTE | 2022-06-28 10:29 | XR_ITS ---
FINAL REPORT CLINICAL HISTORY: pt on amio COMPARISON: 12/13/2021 FINDINGS: TWO-VIEW CHEST The heart size is normal. The mediastinum is normal. Left subclavian ICD is present. The lungs are clear. There is no pneumothorax. IMPRESSION: No acute cardiopulmonary process. Reviewed, Interpreted and Dictated by Supa Zimmer III, MD Transcribed by Juani Juarez Authenticated and [facility]
[2022-06-28 10:38] LABS: Basophils # 0.1 K/mm3 (0-0.2); Basophils % 0.8 % (0.1-2.0); Eosinophils # 0.1 K/mm3 (0.0-0.4); Eosinophils % 1.6 % (0.1-12.0); Hemoglobin 16.8 g/dL (14.1-18.0); Lymphocytes # 1.4 K/mm3 (0.7-4.5); Lymphocytes % 22.9 % (10-50); Mean Corpuscular Hemoglobin 32.9 pg (27.0-31.2); Mean Corpuscular Volume 99.6 fl (80-94); Mean Platelet Volume 8.5 fl (7.4-10.4); Monocytes # 0.5 K/mm3 (0.1-1.0); Monocytes % 7.7 % (1.7-9.3); Neutrophils # 4.1 K/mm3 (1.8-7.8); Platelet Count 134 K/mm3 (142-424); Red Blood Count 5.12 M/mm3 (4.60-6.20); Red Cell Distribution Width 13.3 % (11.5-17.5); White Blood Count 6.2 K/mm3 (4.8-10.8)
[2022-06-28 11:50] LABS: Lymphocytes % 30 % (10-50); Monocytes % 4 % (2-9); Neutrophils % 65 % (42-76); Total Cells Counted 100
[2022-06-28 11:51] LABS: Macrocytosis 1+; Platelet Estimate Slight Decrease
[2022-06-28 12:21] LABS: Alanine Aminotransferase 43 U/L (12-78); Albumin Level 3.9 g/dl (3.5-5.0); Alkaline Phosphatase 97 U/L (38-126); Anion Gap 18.4 mEq/L (5-15); Aspartate Amino Transferase 39 U/L (17-59); Bilirubin,Direct 0.1 mg/dl (0.0-0.4); Bilirubin,Indirect 0.7 mg/dL (0.0-0.9); Bilirubin,Total 0.8 mg/dl (0.2-1.3); Bilirubin,Unconjugated 0.7 mg/dL (0.0-1.1); Blood Urea Nitrogen 20 mg/dl (9-20); Carbon Dioxide 24 mmol/L (22.0-30.0); Chloride 100 mmol/L (98-107); Estimated Glomerular Filt Rate 74 ml/min (>60); GFR (African American) 89 ML/MIN (>60); Glucose 245 mg/dl (74-100); Potassium 4.4 mmoL/L (3.5-5.1); Sodium 138 mmol/L (136-145)
[2022-06-28 12:36] LABS: Free Thyroxine Index 2.8 ug/dL (5.93-13.13); T4 (Thyroxine) 8.1 ug/dl (5.53-11.0); Triiodothryronine (T3) Uptake 35 % (23.5-40.5)
[2022-06-28 12:50] LABS: Thyroid Stimulating Hormone 2.01 uIU/mL (0.465-4.68)
== END ==
PROVIDERS: PCP Internal Medicine Adolescent Medicine; Visit Provider Nurse Practitioner Family
DX: E11.9 Type 2 diabetes mellitus without complications (principal); E78.2 Mixed hyperlipidemia; G47.33 Obstructive sleep apnea (adult) (pediatric); I25.10 Atherosclerotic heart disease of native coronary artery without angina pectoris; I27.21 Secondary pulmonary arterial hypertension; I42.9 Cardiomyopathy, unspecified; I50.23 Acute on chronic systolic (congestive) heart failure; Z79.899 Other long term (current) drug therapy; Z95.810 Presence of automatic (implantable) cardiac defibrillator; I11.0 Hypertensive heart disease with heart failure; Z79.4 Long term (current) use of insulin
CPT/HCPCS: 36415; 71046; 80048; 80076; 84436; 84443; 84479; 85007; 85014; 85018; 85048; 85049

== ENCOUNTER 2022-08-25 08:45 | Emergency (ER) | payer MEDICARE, SELFPAY ==
--- NOTE | 2022-08-25 08:51 | EXP.UTC ---
Discharge Plan Disposition Patient Disposition: Home, Self-Care Condition: Good Prescriptions Prescriptions: New hydrocodone-acetaminophen 7.5-325 mg tablet 1 tab PO Q6H PRN (Reason: pain) Qty: 20 0RF No Action metformin 1,000 mg tablet 1,000 mg PO DAILY furosemide 80 mg tablet 80 mg PO DAILY Qty: 90 1RF aspirin 81 MG tablet,chewable 81 mg PO DAILY amiodarone 200 mg tablet 200 mg PO DAILY Label Comments: TAKE 1 TABLET BY MOUTH ONCE DAILY FOR HEART DISEASE spironolactone 25 mg tablet 50 mg PO DAILY Label Comments: TAKE 2 TABLETS BY MOUTH ONCE DAILY FOR FLUID Soliqua 100/33 100 unit-33 mcg/mL insulin pen 60 ml SQ DAILY Label Comments: INJECT 60 UNITS SUBCUTANEOUSLY EVERY MORNING atorvastatin 40 mg tablet See Rx Instructions .ROUTE .COMPLEX Rx Instructions: TAKE 1 TABLET BY MOUTH AT BEDTIME FOR CHOLESTEROL metoprolol succinate 50 mg tablet extended release 24 hr See Rx Instructions .ROUTE .COMPLEX Rx Instructions: TAKE 1 TABLET BY MOUTH ONCE DAILY FOR HEART DISEASE valsartan 40 mg tablet 40 mg PO DAILY Eliquis 5 mg tablet 5 mg PO BID Referrals Follow up/Referrals: Boris Pelayo MD [Primary Care Provider] - See instructions Activity Restrictions/Add. Instructions Additional Instructions/Restrictions: Splint. Knee scooter. Elevate extremity to reduce swelling. Follow-up with Dr. Cooper in her office on Monday08/29/2022, 11:30 AM. [place] as needed for pain. Additional instructions for CONTROLLED SUBSTANCES: You have been prescribed a medication that is a controlled substance. Controlled substances include pain medications known as opiates and sedative nerve medications known as benzodiazepines. Tramadol, fioricet, and gabapentin are also controlled substances. Some common opiates include: Codeine (such as Tylenol #3) Hydrocodone (Vicodin, Lortab, Lorcet, [place]) Oxycodone (Percocet, Percodan, Oxycodone, Oxy IR) Some common benzodiazepines include: Diazepam (Valium) Lorazepam (Ativan) Alprazolam (Xanax) Clonazepam (Klonopin) Oxazepam (Serax) All of these controlled substances are highly addictive and frequently abused. Misuse can and frequently does lead to addiction as well as overdose and . Medication should be stored in a locked cabinet or other secure storage unit. Do not store the medication in a motor vehicle. Short term supplies, 3 days or less, are prescribed because of the highly addictive nature of the medication. Any of the controlled substance medication NOT taken should be disposed of properly and NOT SAVED. The recommended method of disposing of unused medications is: Place the medicines in a sealable plastic bag. If the medicine is a solid, crush it or add water to dissolve it. Add something undesirable (cat litter, coffee grounds, etc.) Dispose of sealed bag in household trash Do not flush or pour unused medicines down a sink or drain. Controlled substances should not be shared, given away or sold. Because of the addictive nature and frequent abuse, these medications are sometimes stolen. These medications should be kept in a safe place where they cannot be stolen. Do not keep them in your car or purse. Lost or stolen prescriptions for controlled substances WILL NOT BE REFILLED in this emergency department, regardless of whether a police report was filed. Clinical Impressions Clinical Impression: Ankle fracture, right Discharge ED Provider: Buster Hernandez [facility] General Chief complaint: Extremity Injury, Lower Stated complaint: right ankle pain no accident Time Seen by Provider: 08/25/22 10:15 History of Present Illness Provider Complaint: He states that he twisted his right ankle around 5 days ago. Since then he has had pain and swelling of that foot and ankle. When he tries to walk on the he has significantly worse pain. He is a diabetic. Related
[2022-08-25 09:00] VITALS: BP 111/57; PULSE 74; RESP 20; TEMP 36.8; O2SAT 93; BMI 42.2
--- NOTE | 2022-08-25 09:04 | XR_ITS ---
FINAL REPORT CLINICAL HISTORY: pain, fall 4 days ago, swelling and bruising COMPARISON: none FINDINGS: AP, oblique, and lateral views of the right ankle were obtained. There is no prior exam for comparison. There are fractures of the medial and lateral malleoli. The lateral malleolus fracture is displaced laterally. There is a small fracture from the tip of the medial malleolus which is displaced distally. There is degenerative disease and diffuse soft tissue edema. IMPRESSION: Fractures of the medial and lateral malleoli as described. Reviewed, Interpreted and Dictated by Tomeka Segovia MD Transcribed by Tianna Parry Authenticated and [facility]
--- NOTE | 2022-08-25 09:04 | XR_ITS ---
FINAL REPORT CLINICAL HISTORY: pain, fall 4 days ago, swelling and bruising FINDINGS: AP, oblique and lateral views of the right foot were obtained. There is no prior exam for comparison. There is no acute fracture or dislocation of the foot. There is an old fracture of the 2nd metatarsal shaft. A fracture of the lateral malleolus is noted. There is multi joint degenerative disease. Soft tissues are normal. IMPRESSION: No acute osseous abnormality of the right foot. Reviewed, Interpreted and Dictated by Tomeka Segovia MD Transcribed by Tianna Parry Authenticated and . [facility]
[2022-08-25 09:52] LABS: POC Glucose,Bedside 279 (70-110)
[2022-08-25 10:08] VITALS: BP 98/58; PULSE 70; RESP 17; TEMP 36.5; O2SAT 95; BMI 42.2
--- NOTE | 2022-08-25 10:12 | CT_ITS ---
FINAL REPORT TECHNIQUE: Axial images through the right ankle was performed by computed tomography. Sagittal and coronal reformatted images were obtained and reviewed. This study was performed with techniques to keep radiation doses as low as reasonably achievable (ALARA). Individualized dose reduction techniques using automated exposure control or adjustment of mA and/or kV according to the patient's size were employed. CLINICAL HISTORY: rt ankle fx, swelling FINDINGS: There is a comminuted fracture of the lateral malleolus with slight posterior displacement of the dominant fracture fragment. There is an avulsion fracture at the tip of the medial malleolus. No other acute fracture is identified. There is old fracture deformity of the 2nd metatarsal shaft. Multi joint degenerative disease is identified. There is diffuse soft tissue edema, worse along the lateral ankle. Tibiotalar joint effusion is identified. The remaining soft tissues are unremarkable. IMPRESSION: Fractures of the medial and lateral malleoli. Reviewed, Interpreted and Dictated by Tomeka Segovia MD Transcribed by Juani Juarez Authenticated and [facility]
--- NOTE | 2022-08-25 10:19 | PC.NURSE ---
DR CAVANAUGH AT BEDSIDE
--- NOTE | 2022-08-25 10:19 | PC.NURSE ---
DEEPTI DUMONT at for pt albertoal
--- NOTE | 2022-08-25 10:22 | HMH.EDGENADL ---
Discharge Plan Disposition Patient Disposition: Home, Self-Care Condition: Good Prescriptions Prescriptions: New hydrocodone-acetaminophen 7.5-325 mg tablet 1 tab PO Q6H PRN (Reason: pain) Qty: 20 0RF No Action metformin 1,000 mg tablet 1,000 mg PO DAILY furosemide 80 mg tablet 80 mg PO DAILY Qty: 90 1RF aspirin 81 MG tablet,chewable 81 mg PO DAILY amiodarone 200 mg tablet 200 mg PO DAILY Label Comments: TAKE 1 TABLET BY MOUTH ONCE DAILY FOR HEART DISEASE spironolactone 25 mg tablet 50 mg PO DAILY Label Comments: TAKE 2 TABLETS BY MOUTH ONCE DAILY FOR FLUID Soliqua 100/33 100 unit-33 mcg/mL insulin pen 60 ml SQ DAILY Label Comments: INJECT 60 UNITS SUBCUTANEOUSLY EVERY MORNING atorvastatin 40 mg tablet See Rx Instructions .ROUTE .COMPLEX Rx Instructions: TAKE 1 TABLET BY MOUTH AT BEDTIME FOR CHOLESTEROL metoprolol succinate 50 mg tablet extended release 24 hr See Rx Instructions .ROUTE .COMPLEX Rx Instructions: TAKE 1 TABLET BY MOUTH ONCE DAILY FOR HEART DISEASE valsartan 40 mg tablet 40 mg PO DAILY Eliquis 5 mg tablet 5 mg PO BID Referrals Follow up/Referrals: Boris Pelayo MD [Primary Care Provider] - See instructions Activity Restrictions/Add. Instructions Additional Instructions/Restrictions: Splint. Knee scooter. Elevate extremity to reduce swelling. Follow-up with Dr. Cooper in her office on Monday08/29/2022, 11:30 AM. [place] as needed for pain. Additional instructions for CONTROLLED SUBSTANCES: You have been prescribed a medication that is a controlled substance. Controlled substances include pain medications known as opiates and sedative nerve medications known as benzodiazepines. Tramadol, fioricet, and gabapentin are also controlled substances. Some common opiates include: Codeine (such as Tylenol #3) Hydrocodone (Vicodin, Lortab, Lorcet, [place]) Oxycodone (Percocet, Percodan, Oxycodone, Oxy IR) Some common benzodiazepines include: Diazepam (Valium) Lorazepam (Ativan) Alprazolam (Xanax) Clonazepam (Klonopin) Oxazepam (Serax) All of these controlled substances are highly addictive and frequently abused. Misuse can and frequently does lead to addiction as well as overdose and . Medication should be stored in a locked cabinet or other secure storage unit. Do not store the medication in a motor vehicle. Short term supplies, 3 days or less, are prescribed because of the highly addictive nature of the medication. Any of the controlled substance medication NOT taken should be disposed of properly and NOT SAVED. The recommended method of disposing of unused medications is: Place the medicines in a sealable plastic bag. If the medicine is a solid, crush it or add water to dissolve it. Add something undesirable (cat litter, coffee grounds, etc.) Dispose of sealed bag in household trash Do not flush or pour unused medicines down a sink or drain. Controlled substances should not be shared, given away or sold. Because of the addictive nature and frequent abuse, these medications are sometimes stolen. These medications should be kept in a safe place where they cannot be stolen. Do not keep them in your car or purse. Lost or stolen prescriptions for controlled substances WILL NOT BE REFILLED in this emergency department, regardless of whether a police report was filed. Clinical Impressions Clinical Impression: Ankle fracture, right Discharge ED Provider: Buster Hernandez General Adult HPI General Chief complaint: Extremity Injury, Lower Stated complaint: right ankle pain no accident Time Seen by Provider: 08/25/22 10:15 Mode of Arrival: Wheelchair Limitations: No Limitations Description of Symptoms (Recalled from ER Triage Doc. by RN): PT FROM [facility], REPORTS STOOD UP ON MONDAY FELT RIGHT ANKLE POP. BRUISING NOTED WITH INCREASED PAIN. STATES DR. COOPER NEEDS ANKLE CT His
--- NOTE | 2022-08-25 10:25 | PC.NURSE ---
pt to CT via [facility] with topography technician
--- NOTE | 2022-08-25 10:34 | PC.NURSE ---
pt return from ct
[2022-08-25 10:35] VITALS: BP 106/62; PULSE 77; O2SAT 95
--- NOTE | 2022-08-25 11:22 | PC.NURSE ---
contacted rad to check on status of CT result, states it is being read at this time
--- NOTE | 2022-08-25 11:39 | PC.NURSE ---
staff from dr. cooper's office came over to ER to provide follow up information for pt. States Dr. Cooper has reviewed pts ct, wants a well padded posterior splint, pt to be NWB and to follow up with her in the office on Aug 29 at 11:30 am. Information given to ER MD. contacted care management about a possible knee scooter for pt for ambulation needs r/t NWB status. Spoke with anyi
--- NOTE | 2022-08-25 12:06 | PC.NURSE ---
Posterior short leg splint on right leg. pt tolerated well.
[2022-08-25 12:20] VITALS: BP 106/73; PULSE 77; RESP 18; TEMP 36.5; O2SAT 95
== END 2022-08-25 12:20 | disposition home or self-care (01) ==
LOC: UTC 09:50 → ER 10:03
PROVIDERS: Nurse Practitioner Family; Emergency Provider Emergency Medicine; PCP Internal Medicine Adolescent Medicine
DX: S82.62XA Displaced fracture of lateral malleolus of left fibula, initial encounter for closed fracture (principal); X50.0XXA Overexertion from strenuous movement or load, initial encounter
CPT/HCPCS: 29515; 73610; 73630; 73700; 82962; 99285

== ENCOUNTER → 2022-09-08 09:55 | Outpatient (CLI) | payer MEDICARE, SELFPAY ==
--- NOTE | 2022-09-08 09:59 | US_ITS ---
FINAL REPORT CLINICAL HISTORY: decreased sensation, R ankle fx, DM, HLD, HTN COMPARISON: none FINDINGS: ANKLE-BRACHIAL PRESSURE INDICES Pressure indices are as follows: RIGHT LOWER EXTREMITY: Ankle-brachial pressure index: 1.1 Comments: Normal LEFT LOWER EXTREMITY: Ankle-brachial pressure index: 1.0 Comments: Normal IMPRESSION: No evidence of significant obstructive peripheral vascular disease of the lower extremities Reviewed, Interpreted and Dictated by Supa Zimmer III, MD Transcribed by Tianna Parry Authenticated and [facility]
== END ==
PROVIDERS: PCP Internal Medicine Adolescent Medicine; Visit Provider Podiatrist
DX: E11.65 Type 2 diabetes mellitus with hyperglycemia (principal); R20.8 Other disturbances of skin sensation; Z79.4 Long term (current) use of insulin
CPT/HCPCS: 93923

== ENCOUNTER → 2022-09-20 11:10 | Outpatient (CLI) | payer MEDICARE, SELFPAY ==
--- NOTE | 2022-09-20 11:14 | XR_ITS ---
FINAL REPORT CLINICAL HISTORY: R mal fx COMPARISON: 08/25/2022 FINDINGS: Right ankle Three views were obtained. Again identified are fractures of the medial and lateral malleoli. There is no significant change in alignment. There is some healing of the lateral malleolus fracture. There continues to be mild soft tissue edema IMPRESSION: Fractures of the medial and lateral malleoli as above. Reviewed, Interpreted and Dictated by Tomeka Segovia MD Transcribed by Juani Juarez Authenticated and [facility]
== END ==
PROVIDERS: PCP Internal Medicine Adolescent Medicine; Visit Provider Podiatrist
DX: S92.321A Displaced fracture of second metatarsal bone, right foot, initial encounter for closed fracture (principal)
CPT/HCPCS: 73610

== ENCOUNTER → 2022-10-13 12:32 | Outpatient (CLI) | payer MEDICARE, SELFPAY ==
--- NOTE | 2022-10-13 12:49 | XR_ITS ---
FINAL REPORT CLINICAL HISTORY: R mal fx COMPARISON: August 25, 2022 FINDINGS: RIGHT FOOT Three views of the right foot demonstrate no acute fracture or dislocation. There is a chronic fracture of the 2nd metatarsal. There are mild degenerative changes. There is mild hallux valgus deformity. The soft tissues are unremarkable. IMPRESSION: Mild degenerative change with a mild hallux valgus deformity, stable. Reviewed, Interpreted and Dictated by Supa Zimmer III, MD Transcribed by Jaky Patten Authenticated and [facility]
--- NOTE | 2022-10-13 12:49 | XR_ITS ---
FINAL REPORT CLINICAL HISTORY: R mal fx COMPARISON: 09/10/2022 FINDINGS: RIGHT ANKLE Three weight-bearing views of the right ankle were obtained. There is a fracture of the distal fibula metaphysis. There is also a fracture of the inferior tip of the medial malleolus, appears stable. There is no significant callus formation. There are calcaneal spurs. There are vascular calcifications. There is soft tissue swelling. IMPRESSION: Stable appearing fractures of the distal fibular metaphysis and inferior tip of the medial malleolus. Reviewed, Interpreted and Dictated by Supa Zimmer III, MD Transcribed by Jaky Patten Authenticated and [facility]
[2022-10-13 13:14] LABS: Basophils # 0.1 K/mm3 (0-0.2); Eosinophils # 0.2 K/mm3 (0.0-0.4); Eosinophils % 1.9 % (0.1-12.0); Hematocrit 51.1 % (42.0-52.0); Hemoglobin 17.2 g/dL (14.1-18.0); Lymphocytes # 2.3 K/mm3 (0.7-4.5); Mean Corpuscular HGB Conc 33.7 g/dL (31.8-35.4); Mean Corpuscular Hemoglobin 32.7 pg (27.0-31.2); Mean Platelet Volume 8.8 fl (7.4-10.4); Monocytes # 0.7 K/mm3 (0.1-1.0); Monocytes % 6.1 % (1.7-9.3); Neutrophils # 8.7 K/mm3 (1.8-7.8); Platelet Count 183 K/mm3 (142-424); Red Blood Count 5.27 M/mm3 (4.60-6.20); Red Cell Distribution Width 13.9 % (11.5-17.5)
[2022-10-13 13:35] LABS: Chloride 103 mmol/L (98-107); Potassium 4.6 mmoL/L (3.5-5.1); Sodium 137 mmol/L (136-145)
[2022-10-13 13:37] LABS: Blood Urea Nitrogen 22 mg/dl (9-20); Estimated Glomerular Filt Rate 60 ml/min (>60); GFR (African American) 72 ML/MIN (>60)
[2022-10-13 13:38] LABS: Alanine Aminotransferase 49 U/L (12-78); Albumin Level 4.4 g/dl (3.5-5.0); Albumin/Globulin Ratio 1.3 (1.1-1.8); Alkaline Phosphatase 106 U/L (38-126); Anion Gap 13.6 mEq/L (5-15); Aspartate Amino Transferase 37 U/L (17-59); Calcium 8.9 mg/dl (8.4-10.2); Carbon Dioxide 25 mmol/L (22.0-30.0); Globulin 3.4 g/dL (1.3-3.2); Glucose 154 mg/dl (74-100); Total Protein,Serum 7.8 g/dl (6.3-8.2)
[2022-10-13 13:43] LABS: C-Reactive Protein 11.5 mg/L (0-4)
[2022-10-13 14:30] LABS: Erythrocyte Sedimentation Rate 4 mm/hr (0-20)
[2022-10-13 16:30] LABS: 25-OH Vitamin D, Total 28.8 ng/mL (30-100)
== END ==
PROVIDERS: PCP Internal Medicine Adolescent Medicine; Visit Provider Podiatrist
DX: M19.071 Primary osteoarthritis, right ankle and foot (principal); M81.0 Age-related osteoporosis without current pathological fracture; E11.65 Type 2 diabetes mellitus with hyperglycemia; Z79.4 Long term (current) use of insulin; S82.841A Displaced bimalleolar fracture of right lower leg, initial encounter for closed fracture
CPT/HCPCS: 36415; 73610; 73630; 80053; 82306; 84550; 85025; 85651; 86140

== ENCOUNTER → 2023-02-01 08:55 | Outpatient (CLI) | payer MEDICARE, SELFPAY ==
--- NOTE | 2023-02-01 09:09 | XR_ITS ---
FINAL REPORT CLINICAL HISTORY: amio therapy COMPARISON: 06/28/2022 FINDINGS: Two views of the chest were obtained. Left subclavian ICD is present. The heart size and pulmonary vascularity are within normal limits. The mediastinum is normal. There is mild bibasilar atelectasis or scarring. There is no pneumothorax. The bony thorax is intact. IMPRESSION: Mild bibasilar atelectasis or scarring. Reviewed, Interpreted and Dictated by Supa Zimmer III, MD Transcribed by Tianna Parry Authenticated and [facility]
[2023-02-01 09:19] LABS: Basophils % 0.4 % (0.1-2.0); Eosinophils # 0.4 K/mm3 (0.0-0.4); Hematocrit 51.5 % (42.0-52.0); Hemoglobin 16.4 g/dL (14.1-18.0); Lymphocytes # 1.8 K/mm3 (0.7-4.5); Lymphocytes % 23.1 % (10-50); Mean Corpuscular HGB Conc 31.8 g/dL (31.8-35.4); Mean Corpuscular Hemoglobin 32.3 pg (27.0-31.2); Mean Corpuscular Volume 101.3 fl (80-94); Mean Platelet Volume 9.3 fl (7.4-10.4); Monocytes # 0.5 K/mm3 (0.1-1.0); Monocytes % 6.7 % (1.7-9.3); Neutrophils % 64.7 % (37.0-80.0); Platelet Count 132 K/mm3 (142-424); Red Blood Count 5.08 M/mm3 (4.60-6.20); Red Cell Distribution Width 13.8 % (11.5-17.5); White Blood Count 7.8 K/mm3 (4.8-10.8)
[2023-02-01 09:31] LABS: Chloride 105 mmol/L (98-107)
[2023-02-01 09:32] LABS: Potassium 4.7 mmoL/L (3.5-5.1); Sodium 138 mmol/L (136-145)
[2023-02-01 09:34] LABS: Alanine Aminotransferase 47 U/L (12-78); Albumin Level 4.1 g/dl (3.5-5.0); Alkaline Phosphatase 86 U/L (38-126); Anion Gap 15.7 mEq/L (5-15); Aspartate Amino Transferase 42 U/L (17-59); Bilirubin,Indirect 0.8 mg/dL (0.0-0.9); Bilirubin,Total 0.8 mg/dl (0.2-1.3); Bilirubin,Unconjugated 0.7 mg/dL (0.0-1.1); Blood Urea Nitrogen 22 mg/dl (9-20); Calcium 8.9 mg/dl (8.4-10.2); Carbon Dioxide 22 mmol/L (22.0-30.0); Cholesterol 140 mg/dl (140-200); Estimated Glomerular Filt Rate 74 ml/min (>60); GFR (African American) 89 ML/MIN (>60); Glucose 200 mg/dl (74-100); Triglycerides 125 mg/dl (30-150); VLDL Cholesterol 25 mg/dL (0-40)
[2023-02-01 09:35] LABS: Chol/HDL Ratio 3.2 (1-3.5); HDL Cholesterol 44 mg/dl (40-60); Magnesium 1.8 mg/dl (1.6-2.3); Total Protein,Serum 7.3 g/dl (6.3-8.2)
[2023-02-01 09:46] LABS: Direct LDL Cholesterol 68.59 mg/dL (100-129)
[2023-02-01 09:51] LABS: Free T4 (Free Thyroxine) 1.24 ng/dl (0.78-2.19)
[2023-02-01 10:28] LABS: Thyroid Stimulating Hormone 2.76 uIU/mL (0.465-4.68)
== END ==
PROVIDERS: PCP Nurse Practitioner Family; Visit Provider Nurse Practitioner Family
DX: E11.65 Type 2 diabetes mellitus with hyperglycemia (principal); E78.2 Mixed hyperlipidemia; G47.33 Obstructive sleep apnea (adult) (pediatric); I25.10 Atherosclerotic heart disease of native coronary artery without angina pectoris; I27.21 Secondary pulmonary arterial hypertension; I50.23 Acute on chronic systolic (congestive) heart failure; Z79.4 Long term (current) use of insulin; Z79.899 Other long term (current) drug therapy; I42.8 Other cardiomyopathies; I11.0 Hypertensive heart disease with heart failure
CPT/HCPCS: 36415; 71046; 80048; 80061; 80076; 83735; 84439; 84443; 85025

== ENCOUNTER → 2023-02-09 08:55 | Outpatient (CLI) | payer MEDICARE, SELFPAY ==
[2023-02-09 09:53] LABS: Basophils % 0.4 % (0.1-2.0); Eosinophils # 0.5 K/mm3 (0.0-0.4); Hematocrit 52.1 % (42.0-52.0); Hemoglobin 16.9 g/dL (14.1-18.0); Lymphocytes # 1.8 K/mm3 (0.7-4.5); Lymphocytes % 21.6 % (10-50); Mean Corpuscular HGB Conc 32.4 g/dL (31.8-35.4); Mean Corpuscular Hemoglobin 32.1 pg (27.0-31.2); Mean Corpuscular Volume 98.9 fl (80-94); Mean Platelet Volume 8.7 fl (7.4-10.4); Monocytes # 0.5 K/mm3 (0.1-1.0); Monocytes % 6.2 % (1.7-9.3); Neutrophils # 5.3 K/mm3 (1.8-7.8); Neutrophils % 65.8 % (37.0-80.0); Platelet Count 139 K/mm3 (142-424); Red Blood Count 5.27 M/mm3 (4.60-6.20); Red Cell Distribution Width 13.7 % (11.5-17.5); White Blood Count 8.1 K/mm3 (4.8-10.8)
[2023-02-09 10:19] LABS: Alanine Aminotransferase 45 U/L (12-78); Albumin Level 4.2 g/dl (3.5-5.0); Albumin/Globulin Ratio 1.4 (1.1-1.8); Alkaline Phosphatase 82 U/L (38-126); Anion Gap 15.5 mEq/L (5-15); Aspartate Amino Transferase 46 U/L (17-59); Blood Urea Nitrogen 22 mg/dl (9-20); Carbon Dioxide 22 mmol/L (22.0-30.0); Chloride 104 mmol/L (98-107); Estimated Glomerular Filt Rate 66 ml/min (>60); GFR (African American) 80 ML/MIN (>60); Globulin 3.1 g/dL (1.3-3.2); Glucose 207 mg/dl (74-100); Potassium 4.5 mmoL/L (3.5-5.1); Sodium 137 mmol/L (136-145); Total Protein,Serum 7.3 g/dl (6.3-8.2)
[2023-02-09 11:04] LABS: Hemoglobin A1C 8.2 % (4.0-6.0)
== END ==
PROVIDERS: PCP Nurse Practitioner Family; Visit Provider Nurse Practitioner Family
DX: E11.9 Type 2 diabetes mellitus without complications (principal); I50.9 Heart failure, unspecified; Z79.4 Long term (current) use of insulin
CPT/HCPCS: 36415; 80053; 83036; 85025

== ENCOUNTER 2023-08-10 13:14 | Outpatient (CLI) | payer MEDICARE, SELFPAY ==
--- NOTE | 2023-08-10 13:17 | CA_ITS ---
APPROVED REPORT EXAM: Comprehensive 2D, Doppler, and color-flow Echocardiogram [facility] Therapist: Macie Reynolds RT(R) Ht: 6 ft 0 in Wt: 323lbs BSA: 2.61 BP: 130/85 mmHg Indications: hx CM, HTN, GARZA, Obesity, hyperlipidemia, STALIN, RBBB, CHF, CAD, AICD, hx of cardioversion, EF 25% on echo 11/18/19. Echo Enhancing Agent Indication: Endocardial border delineation Agent(s) / Amount(s) Used: Definity 2 cc 2D Dimensions Left Atrium 4.57 cm LA Volume 81.90 mL LVOT 2.26 cm (M/F) 1.5-2.5 LA Volume Index 31.40 mL/m2 (M/F) 16-34 M-Mode Dimensions RVDd 3.71 cm (0.9-2.6) LVDd 6.08 cm (3.5-5.7) Ao Diam 3.41 cm (2.0-3.7) LVDs 5.32 cm (3.5-5.7) IVSd 1.61 cm (0.6-1.1) PWd 0.98 cm (0.6-1.1) EF (Teich) 26.40% FS 12.50% EDV (Teich) 185.50 mL ESV (Teich) 136.50 mL LV Diastology E Decel Time 150 (160-240 msec) E/A Ratio 0.53 MED E' 4.1 (>= 7 cm/sec) E'/MED E' Ratio 9.27 (<= 14) LAT E' 3.9 (>= 10 cm/sec) E/LAT E' Ratio 9.74 (<= 14) Mitral Valve MV E Max Milind. 38.0 (40-130 cm/s) MV A Velocity 72.0 (40-130 cm/s) E/A Ratio 0.53 MV Decel. Time 150 (160-240 ms) Left Ventricle The left ventricle is normal size. A small apical LV aneurysm is present. Left ventricular systolic function is mildly decreased. There is increased LV wall thickness. Proximal septal thickening is noted. The septum is asynchronous. There is mild global hypokinesis present. There is severe hypokinesis present of the distal LV wilder, as well as LV apical akinesis, consistent with presence of aneurysm. The left ventricular diastolic function is normal. No left ventricle thrombus noted on this study. LVEF is 40%. Right Ventricle The right ventricle is not well visualized, but is grossly normal in size and function. Atria The left atrium size is normal. The interatrial septum is not well visualized. Aortic Valve The aortic valve is mildly thickened. There is no aortic valvular stenosis. No aortic regurgitation is present. Mitral Valve The mitral valve is mildly thickened. Trace mitral regurgitation. Tricuspid Valve The tricuspid valve leaflets are thin and pliable. Trace tricuspid regurgitation. There is insufficient TR jet to estimate RVSP. Pulmonic Valve The pulmonary valve is normal in structure. Trace pulmonic regurgitation. Great Vessels The aortic root is normal in size. The ascending aorta is not well visualized. The IVC is not well visualized. Pericardium There is no pericardial effusion. Other Information Study Quality: Fair Conclusion Mild reduction in LV systolic function (LVEF 40%). Small apical LV aneurysm is present. Septum is asynchronous. Severe hypokinesis present of the distal LV wilder, as well as LV apical akinesis. No significant valvular stenosis or regurgitation. Compared to prior study from 2019, the LVEF is now improved. The valvular regurgitations are also improved. Electronically signed by : Selina Garrison MD 08/13/2023 15:40:37
[2023-08-10] MEDS: DEFINITY US ECHO CONTRAST 2ML INJ 2 MG IV (14:02)
== END 2023-08-10 23:59 ==
LOC: RT 13:15
PROVIDERS: PCP Internal Medicine Adolescent Medicine; Visit Provider Internal Medicine
DX: E11.9 Type 2 diabetes mellitus without complications (principal); E66.9 Obesity, unspecified; E78.5 Hyperlipidemia, unspecified; G47.33 Obstructive sleep apnea (adult) (pediatric); I10 Essential (primary) hypertension; I25.10 Atherosclerotic heart disease of native coronary artery without angina pectoris; I27.21 Secondary pulmonary arterial hypertension; I50.20 Unspecified systolic (congestive) heart failure; Z79.899 Other long term (current) drug therapy; Z95.810 Presence of automatic (implantable) cardiac defibrillator; I42.8 Other cardiomyopathies; Z68.41 Body mass index [BMI] 40.0-44.9, adult; R94.31 Abnormal electrocardiogram [ECG] [EKG]; Z79.4 Long term (current) use of insulin
CPT/HCPCS: 93306; Q9957

== ENCOUNTER 2024-08-14 09:24 | Outpatient (CLI) | payer MEDICARE, SELFPAY ==
--- NOTE | 2024-08-14 09:28 | XR_ITS ---
FINAL REPORT TECHNIQUE: Chest PA & Lateral CLINICAL HISTORY: amio therapy..Shortness of breath COMPARISON: 02/01/2023 FINDINGS: 2 views of the chest were performed. The heart size is mildly enlarged. A left-sided biventricular pacemaker is present. The mediastinum is within normal limits. There is no acute cardiopulmonary process. Chronic changes at the lung bases appear stable and may be due to mild fibrosis or scarring. There are no pleural effusions. There is no pneumothorax. The bony thorax appears intact. IMPRESSION: No acute cardiopulmonary process. Stable bibasilar chronic changes, may be due to mild fibrosis or scarring. Reviewed, Interpreted and Dictated by Ole Min MD Transcribed by Tianna Parry Authenticated and [facility]
== END 2024-08-14 23:59 | disposition home or self-care (01) ==
LOC: RAD 09:26
PROVIDERS: PCP Nurse Practitioner Family; Visit Provider Physician Assistant
DX: I50.20 Unspecified systolic (congestive) heart failure (principal); I25.10 Atherosclerotic heart disease of native coronary artery without angina pectoris; E11.9 Type 2 diabetes mellitus without complications; I10 Essential (primary) hypertension; E78.5 Hyperlipidemia, unspecified
CPT/HCPCS: 71046

== ENCOUNTER 2025-02-19 07:44 | Outpatient (CLI) | payer MEDICARE, SELFPAY ==
--- OUTSIDE RECORDS SUMMARY | 2025-02-19 07:48 | XMS_ITS | Clinical Summary ---
Author Organization [facility] Arrhythmia [facility] Address [address] [place] [address] Phone Care Team Providers Care Drill Sharpener Name Role Phone Unavailable Primary Care Provider Unavailabl e Social History Tobacco Use Types Packs/Day Years Used Date Smoking Tobacco: Never Assessed Sex and Gender Information Value Date Recorded Sex Assigned at Not on file Legal Sex Male 9:19 AM EDT Gender Identity Not on file Sexual Orientation Not on file Plan of Treatment Health Maintenance Due Date Last Done Comments Wellness Exam Medicare 1953 Hepatitis C Screening 1970 DTaP/TDaP/Td (1 - Tdap) 1971 Cologuard 1997 Colon Cancer Screening 1997 Colonoscopy 1997 FIT 1997 Sigmoidoscopy 1997 Virtual Colonography 1997 Pneumococcal Vaccine 50+ (1 of 1 - PCV) 2002 Zoster (1 of 2) 2002 COVID-19 Vaccine (2023-2 5 season) 2024 Influenza Vaccine (#1) 2025 Hepatitis B Vaccine Aged Out No longe r eligible based on patient's age to complete this topic Meningococcal B Vaccine Aged Out No l onger eligible based on patient's age to complete this topic Insurance MEDICARE [place] PART A AND B AARP SUPPLEMENTAL
--- NOTE | 2025-02-19 08:00 | CA_ITS ---
APPROVED REPORT EXAM: Comprehensive 2D, Doppler, and color-flow Echocardiogram [employer] Weaver: Macie Reynolds RT(R) Ht: 6 ft 1 in Wt: 315lbs BSA: 2.61 BP: 138/84 mmHg Indications: hx cardiomyopathy, AICD in place 2D Dimensions EF AP4 68.60 % GL Strain -15.2 % M-Mode Dimensions RVDd 2.95 cm (0.9-2.6) LA Diam 4.47 cm (1.9-4.0) LVDd 5.95 cm (3.5-5.7) LVDs 4.74 cm (3.5-5.7) IVSd 1.13 cm (0.6-1.1) PWd 1.13 cm (0.6-1.1) EF (Teich) 40.90% FS 20.30% EDV (Teich) 176.60 mL ESV (Teich) 104.40 mL LV Diastology E Decel Time 150 (160-240 msec) E/A Ratio 0.4 Mitral Valve MV E Max Milind. 36.0 (40-130 cm/s) MV A Velocity 93.0 (40-130 cm/s) E/A Ratio 0.39 MV PHT 44.0 ms Left Ventricle The left ventricle is normal size. The previously visualized apical aneurysm is not seen on this TTE due to absence of ultrasound enhancing agent. The left ventricular systolic function is low normal. There is increased LV wall thickness. The septum is asynchronous. The LV apical wall is akinetic. The left ventricular diastolic function is normal. LVEF is 50-55%. Right Ventricle The right ventricle is normal size. The right ventricular systolic function is normal. Atria The left atrium size is normal. The right atrium size is normal. There is no Doppler evidence of interatrial shunt. Aortic Valve The aortic valve is mildly thickened. There is no aortic valvular stenosis. Trace aortic regurgitation. Mitral Valve The mitral valve is normal in structure. No evidence of mitral valve stenosis. Trace mitral regurgitation. Tricuspid Valve Tricuspid valve is grossly normal in structure and function. Trace tricuspid regurgitation. There is insufficient TR jet to estimate RVSP. Pulmonic Valve The pulmonary valve is normal in structure. Trace pulmonic regurgitation. Great Vessels The aortic root is normal in size. IVC is normal in size and collapses >50% with inspiration. Pericardium There is no pericardial effusion. Other Information Study Quality: Technically Difficult Conclusion Technically difficult study due to poor acoustic windows. Low normal LV systolic function (LVEF 50-55%). The LV apical wall is akinetic. The previously visualized apical aneurysm is not seen on this TTE due to absence of ultrasound enhancing agent. The septum is asynchronous. No significant valvular stenosis or regurgitation. Compared to prior study from 08/2023, the LV systolic function has improved, and is now in the low normal range. In the setting of technically difficult study and previously reported apical aneurysm, future TTE evaluations are suggested with administration of ultrasound enhancing agent. Electronically signed by : Selina Garrison MD 02/23/2025 22:12:29
== END 2025-02-19 23:59 | disposition home or self-care (01) ==
LOC: RT 07:46
PROVIDERS: PCP Internal Medicine Adolescent Medicine; Visit Provider Physician Assistant
DX: I25.10 Atherosclerotic heart disease of native coronary artery without angina pectoris (principal); I50.23 Acute on chronic systolic (congestive) heart failure; I27.20 Pulmonary hypertension, unspecified; R93.1 Abnormal findings on diagnostic imaging of heart and coronary circulation; Z79.899 Other long term (current) drug therapy; Z95.810 Presence of automatic (implantable) cardiac defibrillator; Z86.79 Personal history of other diseases of the circulatory system
CPT/HCPCS: 93306